=== PATIENT | female | born 2005 | race African-American/Black ===

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

== ENCOUNTER 2023-11-20 10:51 | Emergency (ER) | payer SELFPAY | END 2023-11-20 11:13 | disposition left against medical advice (07) | DX: Z53.21 Procedure and treatment not carried out due to patient leaving prior to being seen by health care provider (principal) | CPT/HCPCS: 99199 ==

== ENCOUNTER 2023-12-18 22:50 | Emergency (ER) | payer OTHER, SELFPAY ==
[2023-12-18 23:09] VITALS: BP 114/63; PULSE 77; RESP 16; TEMP 36.6; O2SAT 100
--- NOTE | 2023-12-18 23:13 | ED_ITS ---
[facility] - General Adult General Chief complaint: Unspecified Stated complaint: Had a baby four days ago; boobs are hard Time Seen by Provider: 12/18/23 23:11 Source: patient Mode of arrival: ambulatory Limitations: no limitations History of Present Illness HPI narrative: This is a 18-year-old female who presents to the ED for chief complaint breast firmness bilaterally. States ?my believes are hard and I just gave 4 days ago. ? Patient is concerned because she is trying to breastfeed and getting minimal output of milk. States that she talked to her lactational consulted to advise that she continue to pump and feed to help with this issue. She states that she decided to just come to the hospital. Related Data Allergies Allergy/AdvReac Type Severity Reaction Status Date / Time codeine Allergy Swelling Verified 11/20/23 10:52 of Lip/Tongue/Throat Review of Systems Review of Systems: All systems as dictated in [facility] Past Medical History Medical History No active medical problems Social History Social History Social History: Denies alcohol or tobacco. Occasional marijuana Smoking status: Never smoker Exam Narrative: GENERAL: Well-appearing, well-nourished, and in no acute distress. HEAD: Normocephalic, atraumatic. EYES: PERRLA and EOMI. ENT: Nares clear, no rhinorrhea or epistaxis. Mucous membranes moist. Oropharynx without tonsillar hypertrophy exudate or other lesions. NECK: Supple. No adenopathy or masses. CHEST: No respiratory distress. Clear to auscultation. No wheezes rales or rhonchi HEART: Regular rate and rhythm. No murmur heard. Normal peripheral pulses. ABDOMEN: Soft, nontender, nondistended, normal active bowel sounds. MSK: Normal range of motion. No edema. SKIN: Warm, dry, no rash. NEURO: Alert and oriented x4. No focal deficits. PSYCH: Normal mood and affect. Breast exam done with female RN cosmetic account coordinator present: No erythema, induration or purulent drainage. No tenderness. Course Vital Signs Vital signs: Vital Signs Temperature 98 F 12/18/23 23:09 Pulse Rate 77 12/18/23 23:09 Respiratory Rate 16 12/18/23 23:09 Blood Pressure 114/63 12/18/23 23:09 Pulse Oximetry 100 12/18/23 23:09 Oxygen Delivery Room Air 12/18/23 23:09 Temperature 98 F 12/18/23 23:09 Pulse Rate 77 12/18/23 23:09 Respiratory Rate 16 12/18/23 23:09 Blood Pressure 114/63 12/18/23 23:09 Pulse Oximetry 100 12/18/23 23:09 Oxygen Delivery Room Air 12/18/23 23:09 Medical Decision Making MDM Narrative Medical decision making narrative: This is a 18 yo female who presents to the ED for chief complaint of breast firmness bilaterally and difficulty with . Vitals are normal. Exam shows no evidence of any infection or mastitis. Patient will be discharged in stable condition. Supportive measures discussed and return precautions given. Patient is understanding and agreeable with plan for discharge with PCP follow-up. Vital Signs Vital Signs: Vital Signs Temperature 98 F 12/18/23 23:09 Pulse Rate 77 12/18/23 23:09 Respiratory Rate 16 12/18/23 23:09 Blood Pressure 114/63 12/18/23 23:09 Pulse Oximetry 100 12/18/23 23:09 Oxygen Delivery Room Air 12/18/23 23:09 Temperature 98 F 12/18/23 23:09 Pulse Rate 77 12/18/23 23:09 Respiratory Rate 16 12/18/23 23:09 Blood Pressure 114/63 12/18/23 23:09 Pulse Oximetry 100 12/18/23 23:09 Oxygen Delivery Room Air 12/18/23 23:09 Discharge Plan Discharge Clinical Impression: Hardness of breast Patient Disposition: Home, Self-Care Condition: Stable Instructions: Antibiotic Form, and Plugged Ducts (ED) Additional Instructions: Exam today is reassuring. No evidence of infection. Please follow-up closely with your OB on this issue. If you have any new or worsening symptoms please return to the ER for further evaluation. Prescriptions: No Action vit,nisha [id number] 28 mg iron- 1 mg tablet 1 tablet PO DAILY Qty: 30 0RF acetaminophen 500 mg tablet 1,000 mg PO TID PRN (Reason: carmen) 7 Days Qty: 42 0RF ibuprofen 800 mg tablet 800 mg PO TID PRN (Reason: pain) 7 Days Qty: 21 0RF ondansetron 4 mg tablet,disintegrating 4 mg PO Q8H PRN (Reason: nausea and vomiting) Qty: 10 0RF Follow-up/Referrals: UNKNOWN,DOCTOR [Primary Care Provider] - Time of Disposition: 23:31
== END 2023-12-18 23:35 | disposition home or self-care (01) ==
PROVIDERS: Emergency Provider Physician Assistant
DX: O99.893 Other specified diseases and conditions complicating puerperium (principal); N64.89 Other specified disorders of breast
CPT/HCPCS: 99281

== ENCOUNTER 2024-05-02 20:48 | Emergency (ER) | payer BC, SELFPAY ==
--- NOTE | ~2024-05-02 | CT_ITS ---
11Noncontrast CT scan of the cervical spine Technique: Multiple contiguous axial [address] images of the cervical spine were obtained and rec onstructed in 2D sagittal and coronal planes on the acquisition scanner. Dose reduction technique was used on this scan by utilizing automated exposure control, adjustment of the mA and/or kV according to patient size. The dose-length product (DLP) was 351.21 mGy-cm. Clinical History: Pain Findings: No fractures or dislocations. Unremarkable visualized bony structures. The intervertebral disc spaces are preserved. No prevertebral soft tissue swelling. Impression: No fracture or subluxation of the cervical spine. Reviewed, dictated and finalized at location . Impression: No fracture or subluxation of the cervical spine.
--- NOTE | ~2024-05-02 | CT_ITS ---
Noncontrast CT scan of the thoracolumbar spine CLINICAL HISTORY: Back pain, status post fall TECHNIQUE: Axial noncontrast imaging of the thoracolumbar spine was performed. Sagittal and coronal r eformatted images were constructed. Dose reduction technique was used on this scan by utilizing autom ated exposure control and iterative reconstruction technique. The dose-length product (DLP) was 869.0 4 mGy-cm. FINDINGS: There is no fracture or subluxation of thoracic spine. Vertebral bodies maintain normal hei ght and alignment. Intervertebral disc spaces are preserved. No significant disc bulge or herniation identified. No spinal canal stenosis, cord compression, or neural foraminal narrowing identified. There is no fracture or subluxation of the lumbar spine. Vertebral bodies maintain normal height and alignment. Intervertebral disc spaces are well preserved. No significant disc bulge or herniation see n in the lumbar spine. No spinal canal stenosis or neural foraminal narrowing. Paravertebral soft tissues are unremarkable. Impression: Unremarkable exam. Reviewed, dictated and finalized at location . Impression: Unremarkable exam.
--- OUTSIDE RECORDS SUMMARY | 2024-05-02 20:50 | XMS_ITS | Clinical Summary ---
Author Organization [address] Address [facility] [place] [address] Care Team Providers Care Systems Design Engineer Name Role Phone Tin Rodriguez NP Primary Care Provider Allergies Active Allergy Reactions Criticality Noted Date Comments Codeine Swelling,Stomach upset Medium 03/18/2016 Stomach/GI Upset Medications vit 03-bcby-lraqr-dha 27mg iron- 800 mcg-250 mg capsule Take 1 tablet/capsule by mouth daily 60 capsule 6 04/22/19 24 Active Additional Information Patient not taking.Reported on 03/29/2024 ondansetron ODT (ZOFRAN-ODT) 4 mg disintegrating tablet Take 1 tablet (4 mg total) by mouth every 8 (eight) hours as needed for nausea or vomiting 30 tablet 05/25/19 24 Active Additional Information Patient not taking.Reported on 03/29/2024 ferrous sulfate 325 mg (65 mg of elemental iron) tabletIndications: Iron Deficiency Anemia Take 1 tablet (325 mg total) by mouth daily with breakfast 30 tablet 11 07/31/19 24 025 Active Additional Information Patient not taking.Reported on 03/29/2024 budesonide-formote roL (SYMBICORT) 80-4.5 mcg/actuation inhaler Inhale 2 puffs 2 (two) times a day Rinse mouth with water after use. Do not swallow. 1 each 2 08/12/19 24 Active Additional Information Patient not taking.Reported on 03/29/2024 albuterol HFA (PROVENTIL HFA,VENTOLIN HFA,PROAIR HFA) 90 mcg/actuation inhaler Inhale 2 puffs every 6 (six) hours as needed for wheezing 1 each 2 08/12/19 24 025 Active Additional Information Patient not taking.Reported on 03/29/2024 salmeteroL (SEREVENT DISKUS) 50 mcg/dose diskus inhalerIndications :Adjunct Maintenance Therapy for Asthma Inhale 1 puff 2 (two) times a day 1 each 3 09/24/19 24 Active Additional Information Patient not taking.Reported on 03/29/2024 hydrOXYzine (ATARAX) 25 mg tabletIndications: Supervision of other normal , antepartum Take 1 tablet (25 mg total) by mouth nightly 30 tablet 2 09/24/19 24 Active montelukast (SINGULAIR) 10 mg tablet Take 1 tablet (10 mg total) by mouth nightly 30 tablet 11 09/28/19 24 025 Active Additional Information Patient not taking.Reported on 03/29/2024 acetaminophen 500 mg capsuleIndications :Pain Take 2 capsules (1,000 mg total) by mouth every 6 (six) hours 30 tablet 12/17/19 24 Active Additional Information Patient not taking.Reported on 03/29/2024 ibuprofen (ADVIL,MOTRIN) 600 mg tabletIndications: Pain Take 1 tablet (600 mg total) by mouth every 6 (six) hours 60 tablet 12/17/19 24 Active Additional Information Patient not taking.Reported on 03/29/2024 polyethylene glycol (MIRALAX) 17 gram/dose bulk powderIndications: constipation Take 17 g by mouth daily 510 g 12/17/19 24 Active gabapentin (NEURONTIN) 100 mg capsuleIndications :Neuropathic Pain Take 1 capsule (100 mg total) by mouth 3 (three) times a day for 14 days 42 capsule 03/28/19 25 Active Additional Information Patient not taking.Reported on 03/29/2024 norethindrone (MICRONOR) 0.35 mg tabletIndications: Contraception Take 1 tablet (0.35 mg total) by mouth daily 28 tablet 6 03/29/19 25 026 Active Hospital, Clinic, or Other Facility Administered Medication Ordered Dose Route Frequency Start Date End Date Status [facility] ferrous sulfate/placebo (/IVAD2 TRIAL) tablet 1 tabletIndications:Iron deficiency anemia during 1 tablet oral Daily 08/27/2023 Active Active Problems Problem Noted Date Diagnosed Date care following vaginal delivery 12/12 Overview (12/17/2023): # ID: Afebrile. No signs/symptoms of infection. #VZV NI: for Varivax # Heme: QBL 200 mL. Hemodynamically stable. #Rh neg: s/p Rhogam 09/23. Mom B-, baby B-. # CV/Pulm: Vital signs stable, within normal limits. #MP asthma: Current regimen: Symbicort 80-4.5 mcg inhaler 2 puffs BID, Albuterol 90 mcg inhaler 2 puffs every 4-6 hours PRN, Serevent bid, Singulair daily. #Transient CP: 3 minute episode of CP overnight within an hour of a meal. Explained to patient that this was likely GERD. Has not had any more episodes this morning. # GI/: Tolerating PO. Voiding spontaneously. # Pain: Controlled with above regimen. # MOC: s/p nexplanon placement. # MOF: . Urine drug screen not indicated. Patient informed of results: N/A. # Post DVT prophylaxis: The patient has the following MAJOR risk factors none and the following MINOR risk factors BMI 30-39. SCDs ordered for VTE prophylaxis. # Disposition: Follow up task sent to [facility] scheduling pool. Continue routine care. Moderate persistent asthma 08/12/2023 Overview (11/23/2023): - Age at Diagnosis: Never had diagnosis until this , feels SOB frequently - History of hospitalizations/intubations?: No - Classifications: mild intermittent, mild persistent, moderate persistent, severe persistent - Pre- classification: None - Current classification: moderate persistent - Pre- regimen: None - Baseline peak flow: 180/270/230 (08/12/23) - Ekg Monitor Tech/PCP: Pt has PCP from years ago, will need another PCP after delivery Current regimen: Symbicort 80-4.5 mcg inhaler 2 puffs BID, Albuterol 90 mcg inhaler 2 puffs every 4-6 hours PRN, Serevent bid, Singulair (added 09/27) Plan: [x] Provide prescriptions for spacer and home peak flow meter [x] Create asthma action plan with patient at initial visit [x] Review inhaler technique, regimen adherence and evaluation of confounders of asthma symptoms every visit [x] Obtain peak flows every visit if classification is higher than mild intermittent or symptomatic [x] If patient does not have PCP or electric pile driver operator to manage outside of consider referral: pulmonology referral sent given new diagnosis [x] 3rd trimester anesthesia consultation if moderate to severe asthma - ordered 11/22 Growths and testing per FGR problem Poor social situation 09/03/2022 Overview (05/20/2023): - Partner recently released from incarceration - Living with partner and children - Denies safety concerns - SW referral Alpha thalassemia silent carrier 04/27/2022 Overview (09/28/2023): - Patient alpha thalassemia silent carrier - S/p visit with genetic counselor 07/05. Patient will notify us if she desires partner testing. Rh negative 01/08/2021 Overview (09/28/2023): - IOB T&S: B negative, Davidson negative. Plan: [x] Rhogam at 28 weeks -given 09/23 [] Rhogam workup . Resolved Problems Problem Noted Date Diagnosed Date Resolved Date growth restriction, resolved 09/28/2023 03/21/2024 Iron deficiency anemia during 08/12/2023 03/21/2024 Overview (12/10/2023): Enrolled in IV iron study. Iron management per study protocol. 1000mg Iron Dextran IV Infusion given without complications on 12/09 Patient tolerated well Pt without complaints VSS Nausea and vomiting during 06/17/2023 03/21/2024 Overview (06/17/2023): 06/14: Pt reporting intermittent, daily nausea. Has not been able to flower picker meds due to insurance issues. Able to tolerate PO. Gained 9 pounds over past 2 months, 3 over past month. Plan: [] Reviewed use of B6/doxylamine, Zofran PRN > Rx resent to preferred pharmacy, discussed OTC purchase or Good Rx use if needed based on insurance coverage [] Reviewed eating and weight gain recommendations Short interval between pregn ancies affecting , antepartum 06/17/2023 03/21/2024 Overview (06/17/2023): S/p 09/2022 Counseled patient that short interpregnancy intervals (<12 months) are associated with increased obstetric risks. These include ixvpa-vho-oqjygyvmago-age (SGA) , and infant mortality. Plan: [] ASA for AA and SIP, Rx sent Encounter for supervision of normal , antepartum 05/20/2023 03/21/2024 Overview (11/26/2023): 1st Trimester: [x] Dating Criteria: L=1 (US 05/18/23, [place] 10w5d, CELSA 12/09/23) [x] Labs: Rh neg, Ab neg, Hgb 11.2, Plt 244, Rubella imm, VZV equiv, HIV NR, RPR NR, HepBSAg NR, Hep C Ab NR [x] GC/CT/Trich: neg x3 [x] UCx: CLIG [x] vitamins [x] Genetic Screening: low risk, male [x] Carrier screening: known alpha thal carrier, see separate problem [x] Hgb electrophoresis: AA (2020) [x] Pap: not indicated 2/2 age [] EPDS: PNBHS referral (if indicated) [x] ASA at 12 weeks (if indicated): AA, short interval [x] DM screening: HgbA1c 5.3 [x] Feeding Preferences: benefits of discussed with patient at RN IOB 2nd Trimester: [x] Anatomy ultrasound: incomplete 07/14, complete 07/28 [x] 1hr GTT (24-28wks): 79 [] Flu Shot (Oct-Jan): N/A [x] Tdap (27-36wks): given 8/2 [x] Rhogam (if Rh neg): given /2 [] Childbirth classes discussed [] education (colostrum, expected breast changes, plan for RTW) and breast pump ordered [] Second trimester education packet 3rd Trimester: [x] CBC/HIV/RPR/T&S: NR 11/22 [x] GBS: neg 11/22 [] GC/CT/Trich (if indicated): [] RSV vaccine [] Final discussion (S2S, Baby Friendly, LC Support, PP experience) [] Third trimester education packet Last visit: [] Last clinic visit SVE: [] IOL start agent: [] Epidural: [] Consents signed: Counseling: [] Method of delivery: [] Bottle of CHG 4% and hand out provided @ 36wks (if planned) [] Timing of delivery: desires spontaneous labor, declined 39w IOL [x] MOC: discussed 11/22, to readdress [x] MOF: breast [] COVID-19 vaccine counseling [] education: completed in all 3 trimesters [] Compressor Station Engineer Chief: discussed 11/22 [] Car seat discussed [] PP depression counseling care following vaginal delivery 10/10/2022 05/20/2023 Overview (10/12/2022): # ID: Afebrile. No signs/symptoms of infection. #Varicella non-immune: Varivax given 10/12 # Heme: EBL 150 mL. No symptoms acute blood loss anemia. #Rh neg: baby B neg, no indication for rhogam # CV/Pulm: Vital signs stable, within normal limits. # GI/: Tolerating PO. Voiding spontaneously. # Pain: Pain controlled with medication regimen. # MOC: Progestin-only pills. # MOF: . Urine drug screen not indicated. Patient informed of results: N/A. # Post DVT prophylaxis: The patient has the following MAJOR risk factors none and the following MINOR risk factors BMI 30-39. SCDs ordered for VTE prophylaxis. # Disposition: Follow up task sent to [facility] scheduling pool. Desires discharge home today. Encounter for induction of labor 10/09/2022 05/20/2023 Overview (10/09/2022): Serena Nair is a 17 y.o. female at 39w3d who is dated by L=1 and is being admitted for an elective induction of labor. Admit to L&D: Consents signed and placed in chart. Labs: CBC and T&S pending. Induction of labor with CC and OT . FWB: Continuous monitoring. tracing category I. ID: 3rd trimester HIV (>28 wga) negative on 09/03/22. GBS negative on 09/18/22 . RPR on admission: pending. Membrane Status: intact. Indications for UDS: none. Verbal consent obtained for UDS: Not indicated. MOF: Plans to breastfeed. Urine drug screen not indicated. Patient informed of results: N/A. MOC: Plans to use POPs > COCs for contraception. Pain management: Desires epidural. Post DVT prophylaxis: The patient has the following MAJOR risk factors none and the following MINOR risk factors BMI 30-39. SCDs will be ordered for VTE prophylaxis . Rh negative: for PP Rhogram workup Varicella non-immune: for Varivax History of anemia 04/06/2022 05/20/2023 Overview (09/25/2022): Hgb 13 on IOB labs 3T Hgb 11.8 Varicella non-immune 03/10/2022 025 Overview (09/28/2023): - Varivax given G2 (10/12/22) - IOB labs with VZV equivocal. Plan: [] Repeat Varivax Encounter for supervision of normal in third trimester 02/25/2022 05/20/2023 Overview (10/09/2022): UMESH WILKS DEL 1st Trimester: [x] Dating Criteria: L=1 [x] Labs: Rh neg, Ab neg, CBC wnl, Rubella imm, VZV NI, HIV NR, RPR NR, HepBSAg neg, Hep C Ab neg [x] GC/CT/Trich: negx3 [x] UCx: neg [x] vitamins talking [x] Genetic Screening: LR [x] CF/SMA carrier screening: alpha thal silent carrier [x] Hgb electrophoresis: AA [x] Pap: NA [x] EPDS: PNBHS referral (if indicated): N/A [x] ASA at 12 weeks (if indicated) N/A [x] DM screening: HgbA1c 4.8 (<5.7: no further test until 2T screen, 5.7-6.5: obtain 2h GTT, >6.5: refer to CDP) [] Feeding Preferences: benefits of discussed with patient at RN IOB 2nd Trimester: [x] Anatomy ultrasound: eIF, wnl, AGA, completion 06/18 wnl [x] CBC: Hgb 12.1 [x] 1hr GTT (24-28wks): 96 [x] Flu Shot (Oct-Jan): N/A [x] Tdap (27-36wks): 07/24/22 [x] Rhogam (if Rh neg): 07/24/22 [x] Childbirth classes discussed [x] education (colostrum, expected breast changes, plan for RTW) and breast pump ordered [x] Second trimester education packet 3rd Trimester: [x] CBC/HIV/RPR/T&S: Hgb 11, HIV/RPR NR (09/03/22) [x] GBS: negative [x] GC/CT/Trich (if indicated): neg/neg/neg [x] Final discussion (S2S, Baby Friendly, LC Support, PP experience) [x] Third trimester education packet Last visit: [x] Last clinic visit SVE: /-3 [x] IOL start agent: Cook catheter with pitocin [x] Epidural: desires when painfully jess [x] Consents signed: yes, 10/09/22 Counseling: [x] Method of delivery: anticipate vaginal [] Bottle of CHG 4% and hand out provided @ 36wks (if planned) [x] Timing of delivery: discussed r/b/a to risk reducing 39 week IOL, pt declined, planning to await labor [x] MOC: POPs > OCPs, considering Nexplanon at later date [x] MOF: [] COVID-19 vaccine counseling [x] education: completed in all 3 trimesters [x] Compressor Station Engineer Chief: remains undecided, going to look today before IOL [x] Car seat discussed [x] PP depression counseling Encounters Date Type Department Care Team Description 03/29/2024 11:30 AM INTERNET MARKETING MANAGER Procedure visit [facility] Obstetrics and Gynecology [facility] 7th Floor [address] [place] [address] 7, Ob Cms Provider 2 Coh Nexplanon removal (Primary Dx); Encounter for initial prescription of contraceptive pills 03/29/2024 [facility] Eligibility Review [facility] Community Health Worker [address] [place] [address] [address] [place] [address] Rosie Benton 03/28/2024 3:39 AM INTERNET MARKETING MANAGER - 03/28/2024 6:26 AM INTERNET MARKETING MANAGER Emergency [facility] Emergency Department [address] [place] [address] Janel Bales MD Encounter for surveillance of Nexplanon subdermal contraceptive (Primary Dx); Impingement of left shoulder Discharge Disposition: Discharge to home or self care 03/28/2024 Tele[facility] [address] [place] [address] Floor [address] [place] [phone] Ruthie Alvarado 03/27/2024 Telephone [facility] [address] [place] [address] Floor [address] [place] [address] Sirisha Crews RN 03/07/2024 Telephone [facility] [address] [place] [address] Floor [address] [place] [phone] Blaise Vences from Last 3 Months Immunizations Immunization Administration Dates Next Due DTaP 06/04/2010, 9,12/03/2006,08/17,02/19/2006,10/23/2005,03/27/2004 ,02/04/2004,2003 DTaP / Hep B / IPV 11/16/2007 H1N1 All Forms 04/02/2009,01/24/2009 HPV9 10/17/2015,06/20/2015,11/26/2014 Hep A, Ped Unspecified 10/23/2005 Hep A, Unspecified 05/14/2008,03/16/2007, 007 Hep B, Adolescent or Pediatric 03/27/2004,2003,2003 Hep B, Unspecified 11/16/2007, 7,02/19/2006,01/01 HiB 05/14/2008, 7,08/17/2006,02/19,10/23/2005,03/27/2004,02/04/2004 ,2003 IPV 03/27/2004,02/04/2004,2003 Influenza, Quadrivalent, Spl it, Preservative Free, Intramuscular 11/30/2018,11/26/2014 Influenza, Unspecified 12/13/2013,2010,03/16/2007,12/03 MMR 08/07/2021(Deferred: No longer needed - Pt Rubella Immune, vaccine not required),11/16/2007,03/16/2007,2006 MMRV 10/23/2005 Meningococcal MCV4P (Menactra) 11/26/2014 Pneumococcal Conjugate 7-Valent 03/27/2004,02/03 Pneumococcal, Unspecified 05/14/2008,01/2007,08/17/2006,02/19,2003 Polio, Unspecified 06/04/2010, 8,08/17/2006,02/19 Rotavirus, Unspecified 02/19/2006 Tdap 09/24/2023, 3,06/16/2021,12/03 Varicella 12/16/2023, 3,08/07/2021,06/04,10/05/2008,03/16/2007 Medical History Medical History Date Comments Asthma Migraine Alpha thalassemia silent carrier 2022 Family History Medical History Relation Name Comments No Known Problems Father Breast cancer Maternal Grandmother Cerebral palsy Mother Pancreatic cancer Paternal Grandfather Breast cancer Paternal Grandmother Relation Name Status Comments Father Alive Maternal Grandmother Mother Alive Paternal Grandfather Paternal Grandmother Alive Social History Tobacco Use Types Packs/Day Years Used Date Smoking Tobacco: Never Smokeless Tobacco: Never Tobacco Cessation:Counseling Given: Not Answered Alcohol Use Standard Drinks/Week Comments Never 0 (1 standard drink = 0.6 oz pur e alcohol) [facility] Utilities Answer Date Recorded In the past 12 months has [employer], oil, or water company threatened to shut off services in your home? No 12/16/2023 Humiliation, Afraid, Rape, and Kick questionnair e Answer Date Recorded Within the last year, have y ou been afraid of your partner or ex-partner? No 04/19/2023 Within the last year, have y ou been humiliated or emotionally abused in other ways by your partner or ex-partner? No Within the last year, have y ou been kicked, hit, slapped, or otherwise physically hurt by your partner or ex-partner? No 04/19/2023 Within the last year, have y ou been raped or forced to have any kind of sexual activity by your partner or ex-partner? No 04/19/2023 Social Connection and Isolat ion Panel [NHANES] Answer Date Recorded In a typical week, how many times do you talk on the phone with family, friends, or neighbors? More than three times a week 12/16/2023 How often do you get togethe r with friends or relatives? More than three times a week 12/16/2023 How often do you attend chur or yarsani services? More than 4 times per year 12/16/2023 Do you belong to any clubs o r organizations such as baptist groups, unions, fraternal or athletic groups, or school groups? Yes 12/16/2023 How often do you attend meet ings of the clubs or organizations you belong to? More than 4 times per year 12/16/2023 Are you , , di vorced, , never , or living with a partner? Never 12/16/2023 AUDIT-C Answer Date Recorded Q1: How often do you have a drink containing alc ohol? Never 03/29/2024 Average Number of Drinks Not on file 025 Frequency of Binge Drinking Not on file 06/2024 Overall Financial Resource Strain (CARDIA) Answe r Date Recorded How hard is it for you to pa y for the very basics like food, housing, medical care, and heating? Not very hard 12/16/2023 PHQ-2 Answer Date Recorded PHQ-2 Total Score (If total score is 3 or more points, staff should administer the PHQ-9) 0 10/09/2022 [facility] Health - Occupational Stress Questionnaire Answer Date Recorded Do you feel stress - tense, restless, nervous, or anxious, or unable to sleep at night because your mind is troubled all the time - these days? Only a little 10/05/2023 Exercise Vital Sign Answer Date Recorde d On average, how many days pe r week do you engage in moderate to strenuous exercise (like a brisk walk)? 3 days 04/19/2023 On average, how many minutes do you engage in exercise at this level? 30 min 04/19/2023 Hunger Vital Sign Answer Date Recorded Within the past 12 months, y ou worried that your food would run out before you got the money to buy more. Never true 12/16/19 Within the past 12 months, t he food you bought just didn't last and you didn't have money to get more. Never true 12/16/2023 PRAPARE - Transportation Answer Date Re corded In the past 12 months, has l ack of transportation kept you from medical appointments or from getting medications? No 11/23 In the past 12 months, has l ack of transportation kept you from meetings, work, or from getting things needed for daily living? No 12/16/2023 Housing Stability Vital Sign Answer Yvon e Recorded In the last 12 months, was t here a time when you were not able to pay the mortgage or rent on time? Yes 04/19/2023 In the last 12 months, how many places have you lived? 2 04/19/2023 In the last 12 months, was t here a time when you did not have a steady place to sleep or slept in a jail (including now)? No 04/19/2023 Lockridge Depression Scale Answer Date Recorded Lockridge Depression Scale Total 6 08/27/2023 The thought of harming myself has occurred to me . Never 08/27/2023 Housing Stability Vital Sign Answer Yvon e Recorded In the last 12 months, was t here a time when you were not able to pay the mortgage or rent on time? No 12/16/2023 In the past 12 months, how m any times have you moved where you were living? 1 12/16/2023 At any time in the past 12 m [facility], were you homeless or living in a jail (including now)? No 12/16/2023 Personal Safety Answer Date Recorded Have you ever been in or are you currently in a harmful physical or emotional relationship or is someone making you feel afraid or unsafe? Denies 03/28/2024 Education Answer Date Recorded What is the highest level of school you have completed or the highest degree you have received? 11th grade 02/24/2022 Comments No Sex and Gender Information Value Date Recorded Sex Assigned at Female 03/29/2024 11:30 AM INTERNET MARKETING MANAGER Legal Sex Female 6:07 AM INTERNET MARKETING MANAGER Gender Identity Female 03/29/2024 11:30 AM INTERNET MARKETING MANAGER Sexual Orientation Straight 03/29/2024 11 :30 AM INTERNET MARKETING MANAGER Obstetrics History Para Term AB IAB SAB Ectopic Multiple Livin g Live Births 4 3 3 0 1 0 1 0 0 3 3 Date Outcome GA Total Labor Labor/2nd/3rd Weight Sex Type Anes PTL Ragini A1 A5 Name Clin SAB SAB 2021 Term 37w 5d 11h 54m 9h 56m/1h 56m/0h 02m 2.87 kg (6 lb 5.2 oz) M Vag-Sp ont Epidur al N Livin g 7 9 KELLI NAIR, Mauro Ahuja MD Complications:None Delivery Location:[facility] Main C ampus ([facility]LD) 2022 Term 39w 4d 6h 30m 6h 03m/0h 25m/0h 02m 2.76 kg (6 lb 1.4 oz) F Vagina l Epidur al N Livin g 8 9 ADRIANA NAIR Julia Ellen, MD Complications:None Delivery Location:[facility] Main C ampus ([facility]) 2023 Term 40w 6d 0h 15m 0h 11m/0h 04m 3.15 kg (6 lb 15.1 oz) M Vagina l None N Livin g 8 9 Murray whittaker, Chadwick dia MD Complications:None Delivery Location:[facility] Main C ampus ([facility]) Last Filed Vital Signs Vital Sign Reading Time Taken Comments Blood Pressure 112/71 03/29/2024 11:24 AM INTERNET MARKETING MANAGER Pulse 84 03/28/2024 6:20 AM INTERNET MARKETING MANAGER Temperature 37 C (98.6 F) 03/28/2024 1:43 AM INTERNET MARKETING MANAGER Respiratory Rate 16 03/28/2024 6:20 AM INTERNET MARKETING MANAGER Oxygen Saturation 100% 03/28/2024 6:20 AM INTERNET MARKETING MANAGER Inhaled Oxygen Concentration - - Weight 73.9 kg (163 lb) 03/29/2024 11:24 AM INTERNET MARKETING MANAGER Height 162.6 cm (5' 4 ) 03/29/2024 11:24 AM INTERNET MARKETING MANAGER Body Mass Index 27.98 03/29/2024 11:24 AM INTERNET MARKETING MANAGER Plan of Treatment Health Maintenance Due Date Last Done Comments Pneumococcal vaccine <65 (1 of 2 - PPSV23) 07/09/2008 05/14/2008, 12/03/2006, 08/17/2006, Additional history exists Meningococcal B Vaccine (1 of 2 - Standard) 2019 Regular Well Visit/Exam 18-64 09/20/2021 Influenza Vaccine (#1) 2023 9, 11/26/2014, 12/13/2013, Additional history exists Chlamydia and Gonorrhea (GC/CT) Screening 07/30/2024 07/31/2023, 04/19/2023, 09/03/2022, Additional history exists Depression Screening 08/26/2024 08/27/2023, 09/26/2022, 09/26/2022 DTaP/Tdap/Td Vaccine (10 - Td or Tdap) 09/23/2033 09/24/2023, 07/24/2022, 06/16/2021, Additional history exists Hepatitis B Screening Completed 11/16/2007 , 11/16/2007, 08/17/2006, Additional history exists Meningococcal Vaccine Aged Out 11/26/2014 No rober mansoor eligible based on patient's age to complete this topic HPV Vaccines Completed 10/17/2015, /09/2015, 11/26/2014 Hepatitis C Screening Completed 04/19/2023 , 03/09/2022, 01/08/2021 Varicella Vaccines Completed 12/16/2023, 0 10/12/2022, 08/07/2021, Additional history exists Procedures Procedure Name Priority Date/Time Associated Diagnosis Comments POCT HCG, URINE Routine 03/28/2024 6:14 AM INTERNET MARKETING MANAGER N. GONORRHOEAE/C. TRACHOMATIS AMPLIFICATION Routine 07/31/2023 10:58 AM CDT HEPATITIS C ANTIBODY Routine 04/19/2023 11:59 AM INTERNET MARKETING MANAGER Encounter for supervision of other normal in first trimester from Last 3 Months or Most Recently Relevant to Health Maintenance Results * POCT hCG, urine (03/28/2024 6:14 AM INTERNET MARKETING MANAGER) Pathologist [facility] HCG, ur, POC Negative Negative Lot Number [id number] QC Backgroud Clear Acceptable QC Control Line Acceptable Urine 03/28/2024 6:14 AM INTERNET MARKETING MANAGER Jinny Devine MD POINT OF CARE TEST ORD ERABLES Final Result * N. gonorrhoeae/C. trachomatis Amplification Urine (07/31/2023 10:58 AM CDT) Pathologist [facility] C. trachomatis Not Detected Not Detected [facility] N. gonorrhoeae Not Detected Not Detected [facility] Comment: Interpretive Data This assay detects Chlamydia trachomatis and Neisseria gonorrhoeae by nucleic acid amplification testing (NAAT). This assay has been cleared by the [place] Food and Drug administration. The performance characteristics of this test have been verified by the [facility] Molecular Infectious Disease laboratory. The performance characteristics of this test have not been evaluated in individuals less than 14 years of age. Current Interpretive Data last revised 2022. Urine (None) 07/31/2023 10:5 8 AM CDT 07/31/2023 11:18 AM CDT Yolanda Mims MD LAB MICROBIOLOGY - G ENERAL ORDERABLES Final Result [facility] Department [place] [address] [facility] * Hepatitis C antibody Blood (04/19/2023 11:59 AM INTERNET MARKETING MANAGER) Pathologist [facility] Hep C Ab Nonreactive Nonreactive [facility] Comment:Antibodies to HCV no t detected. Does NOT exclude the possibility of recent exposure to HCV. Current interpretive data was last revised on 21 Blood 04/19/2023 11:5 9 AM INTERNET MARKETING MANAGER 04/19/2023 12:31 PM INTERNET MARKETING MANAGER Niko John MD LAB MICROBIOLOGY - GENERAL ORDERABLES Final Result Performing Organization Address City/State/[facility] Co de Phone Number REG [facility] Department [place] [address] from Last 3 Months or Most Recently Relevant to Health Maintenance Insurance [facility] OTHER Address: [address] [facility] PPO [facility] PLAN [facility] ACCESS Advance Directives For more information, please contact: [phone] * Full Code (Latest Code Status on File) Date Activated Date Inactivated Comments 12/15/2023 3:18 PM 12/17/2023 9:44 PM * Full Code Date Activated Date Inactivated Comments 12/14/2023 12:36 AM 12/15/2023 3:18 PM Full CPR in case of cardiopulmonary arrest * Full Code Date Activated Date Inactivated Comments 10/10/2022 7:20 AM 10/12/2022 6:04 PM * Full Code Date Activated Date Inactivated Comments 10/09/2022 8:24 PM 10/10/2022 7:20 AM Full CPR in case of cardiopulmonary arrest * Full Code Date Activated Date Inactivated Comments 08/05/2021 3:12 PM 08/07/2021 6:55 PM Care Teams Systems Design Engineer Relationship Specialty Start Date End Date Tin Rodriguez NP [address] [place] [address] PCP - General Family Medicine 03/29/24
--- OUTSIDE RECORDS SUMMARY | 2024-05-02 20:50 | XMS_ITS | Encounter Summary ---
Author Organization [facility] Healthcare Address [address] [place] [address] Care Team Providers Care Broach Setter Name Role Phone Tin Rodriguez NP Primary Care Provider [phone] Encounter Details Date Type Department Care Team (Late st Contact Info) Description 10/07/2023 Social Work Obstetrics and Gynecology Clinic [address] [facility] 3rd Floor [address] [place] [address] Senthil Lomas LCSW Social History Tobacco Use Types Packs/Day Years Used Date Smoking Tobacco: Never Smokeless Tobacco: Never Alcohol Use Standard Drinks/Week Comments Never 0 (1 standard drink = 0.6 oz pur e alcohol) [facility] Utilities Answer Date Recorded In the past 12 months has e [employer], gas, oil, or water [employer] threatened to shut off services in your home? No 04/19/2023 Humiliation, Afraid, Rape, and Kick questionnair e [...] neighbors? More than three times a week 04/19/2023 How often do you get togethe r with friends or relatives? More than three times a week 04/19/2023 Attends Christian Services Not on file 04/19 Active Member of Clubs or Organizations Not on f ile 04/19/2023 Attends Club or Organization Meetings Not on manny e 04/19/2023 Marital Status Not on file 04/19/2023 AUDIT-C Answer Date Recorded Q1: How often do you have a drink containing alcohol? Never 08/12/2023 Q2: How many drinks containi ng alcohol do you have on a typical day when you are drinking? Patient does not drink Frequency of Binge Drinking Not on file 07/24 Overall Financial Resource Strain (CARDIA) Answe r Date Recorded How hard is it for you to pa y for the very basics like food, housing, medical care, and heating? Not very hard 10/05/2023 PHQ-2 Answer Date Recorded PHQ-2 Total Score (If total score is 3 or more points, staff should administer the PHQ-9) 0 10/09/2022 [facility] - Occupational Stress Questionnaire Answer Date Recorded [...] the money to buy more. Never true 10/05/19 24 Within the past 12 months, t he food you bought just didn't last and you didn't have money to get more. Never true 10/05/2023 PRAPARE - Transportation Answer Date Re corded In the past 12 months, has l ack of transportation kept you from medical appointments or from getting medications? No 09/22 In the past 12 months, has l ack of transportation kept you from meetings, work, or from getting things needed for daily living? No 10/05/2023 Housing Stability Vital Sign Answer Yvon e [...] place to sleep or slept in a mcfp (including now)? No 04/19/2023 [place] Depression Scale Answer Date Recorded [place] Depression Scale Total 6 08/27/2023 The thought of harming myself has occurred to me . Never 08/27/2023 Personal Safety Answer Date Recorded Have you ever been in or are you currently in a harmful physical or emotional relationship or is someone making you feel afraid or unsafe? Denies 07/31/2023 Education Answer Date Recorded What is the highest level of school you have completed or the highest degree you have received? 11th grade 02/24/2022 Comments Yes Sex and Gender Information Value Date Recorded Sex Assigned at Female 03/29/2024 11:30 AM SAFETY COMPLIANCE SPECIALIST Legal Sex Female 6:07 AM SAFETY COMPLIANCE SPECIALIST Gender Identity Female 03/29/2024 11:30 AM SAFETY COMPLIANCE SPECIALIST Sexual Orientation Straight 03/29/2024 11 :30 AM SAFETY COMPLIANCE SPECIALIST documented as of this encounter Plan of Treatment Not on file documented as of this encounter Visit Diagnoses Not on filedocumented in this encounter Additional Health Concerns Infection Onset Date Last Indicated Resolved Time COVID: Suspected 11/20/2023 11/20/2023 11/20/2023 3:42 PM CDT Rhino/Enterovirus 11/20/2023 11/20/2023 11/27/2023 3:05 AM CDT documented as of this encounter Care Teams Broach Setter Relationship Specialty Start Date End Date Tin Rodriguez NP [address] [place] [address] PCP - General Family Medicine 03/29/24 documented as of this encounter
--- OUTSIDE RECORDS SUMMARY | 2024-05-02 20:51 | XMS_ITS | Encounter Summary ---
Author Organization [facility] Healthcare Address [address] [place] [address] Care Team Providers Care Honey Producer Name Role Phone Tin Rodriguez NP Primary Care Provider [phone] Encounter Details Date Type Department Care Team (Late st Contact Info) Description 09/04/2022 Treatment [facility] [address] [address] Armando Cunningham MD Social History Tobacco Use Types Packs/Day Years Used Date Smoking Tobacco: Never Smokeless Tobacco: Never Alcohol Use Standard Drinks/Week Comments Never 0 (1 standard drink = 0.6 oz pur e alcohol) Humiliation, Afraid, Rape, and Kick questionnair e Answer Date Recorded Within the last year, have y ou been afraid of your partner or ex-partner? No 02/24/2022 Within the last year, have y ou been humiliated or emotionally abused in other ways by your partner or ex-partner? No Within the last year, have y ou been kicked, hit, slapped, or otherwise physically hurt by your partner or ex-partner? No 02/24/2022 Within the last year, have y ou been raped or forced to have any kind of sexual activity by your partner or ex-partner? No 02/24/2022 Social Connection and Isolat ion Panel [NHANES] Answer Date Recorded In a typical week, how many times do you talk on the phone with family, friends, or neighbors? Once a week 02/24/2022 Frequency of Social Gatherin gs with Friends and Family Not on file 02/24/2022 How often do you attend chur ch or temple services? More than 4 times per year 02/24/2022 Do you belong to any clubs o r organizations such as anabaptist groups, unions, fraternal or athletic groups, or school groups? No 02/24/2022 How often do you attend meet ings of the clubs or organizations you belong to? Never 02/24/2022 Are you , , di vorced, , never , or living with a partner? 02/24/2022 AUDIT-C Answer Date Recorded Frequency of Alcohol Consumption Not on file 07/12/2022 Q2: How many drinks containi ng alcohol do you have on a typical day when you are drinking? Patient does not drink Frequency of Binge Drinking Not on file 06/23 Overall Financial Resource Strain (CARDIA) Answe r Date Recorded How hard is it for you to pa y for the very basics like food, housing, medical care, and heating? Not hard at all 02/24/2022 [facility] - Occupational Stress Questionnaire Answer Date Recorded Do you feel stress - tense, restless, nervous, or anxious, or unable to sleep at night because your mind is troubled all the time - these days? Only a little 02/24/2022 Exercise Vital Sign Answer Date Recorde d On average, how many days pe r week do you engage in moderate to strenuous exercise (like a brisk walk)? 7 days 02/24/2022 On average, how many minutes do you engage in exercise at this level? 20 min 02/24/2022 Hunger Vital Sign Answer Date Recorded Within the past 12 months, y ou worried that your food would run out before you got the money to buy more. Never true 07/08/19 23 Within the past 12 months, t he food you bought just didn't last and you didn't have money to get more. Never true 07/07/2022 PRAPARE - Transportation Answer Date Re corded In the past 12 months, has l ack of transportation kept you from medical appointments or from getting medications? Yes 04/2022 In the past 12 months, has l ack of transportation kept you from meetings, work, or from getting things needed for daily living? Yes 02/24/2022 Housing Stability Vital Sign Answer Yvon e Recorded In the last 12 months, was t here a time when you were not able to pay the mortgage or rent on time? Yes 02/24/2022 In the last 12 months, how many places have you lived? 2 02/24/2022 In the last 12 months, was t here a time when you did not have a steady place to sleep or slept in a half-way (including now)? No 02/24/2022 [place] Depression Scale Answer Date Recorded [place] Depression Scale Total 6 07/07/2022 The thought of harming myself has occurred to me . Never 07/07/2022 Education Answer Date Recorded What is the highest level of school you have completed or the highest degree you have received? 11th grade 02/24/2022 Comments Yes Sex and Gender Information Value Date Recorded Sex Assigned at Female 03/29/2024 11:30 AM PSYCHOLOGY TECH Legal Sex Female 6:07 AM PSYCHOLOGY TECH Gender Identity Female 03/29/2024 11:30 AM PSYCHOLOGY TECH Sexual Orientation Straight 03/29/2024 11 :30 AM PSYCHOLOGY TECH documented as of this encounter Progress Notes * Armando Cunningham MD - 09/04/2022 4:10 PM CDT Transfusion Medicine Blood Bank Note Patient Information: ABO/Rh: B negative Antibody screen: Positive Previous antibodies: No known antibodies Antibodies identified: passive anti-D Additional testing performed: None Relevant Patient History: Serena Sood is a 16 y.o. woman at 32w0d who presents for her return OB visit. Testing Information: The antibody screen was positive. Antibody identification demonstrated antibodies against the D antigen in the patient's plasma. Additional testing was not performed. Phenotyping showed that the patient's red blood cells are D antigen negative. Detection of anti-D in this patient's plasma is consistent with the patient's known history of RhIgadministration on 07/24/2022 and is therefore categorized as a passive anti-D. All common, clinically significant antibodies have been ruled out. Clinical Relevance: RhIg is a biologic prepared from human plasma that consists of concentrated antibodies directed against the D antigen on red blood cells. Anti-D antibodies may be implicated in hemolytic transfusion reactions with extravascular hemolysis and hemolytic disease of the fetus and . Therefore, anti-D antibodies attributable to RhIg administration may generally be considered clinically significant as long as the passively acquired anti-D is present in the patient's plasma. Therapeutic Relevance: ABO/Rh and crossmatch compatible red blood cell units will be provided for future transfusions. Contact Information: Please contact the [facility] with any questions. This report has been prepared by: Armando Cunningham MD Cosigned by Franky Ruth MD at 09/08/2022 4:20 PM CDT Associated attestation - Franky Ruth MD - 09/08/2022 4:20 PM CDT Attestation: I have personally reviewed the antibody result and agree with the interpretation contained in this written blood bank report. Franky Ruth MD documented in this encounter Plan of Treatment Not on file documented as of this encounter Visit Diagnoses Not on filedocumented in this encounter Additional Health Concerns Infection Onset Date Last Indicated Resolved Time COVID: Suspected 07/31/2023 07/31/2023 07/31/2023 2:02 PM CDT COVID: Suspected 11/20/2023 11/20/2023 11/20/2023 3:42 PM CDT Rhino/Enterovirus 11/20/2023 11/20/2023 11/27/2023 3:05 AM CDT documented as of this encounter Care Teams Honey Producer Relationship Specialty Start Date End Date Tin Rodriguez NP [address] [place] [address] PCP - General Family Medicine 03/29/24 documented as of this encounter
--- OUTSIDE RECORDS SUMMARY | 2024-05-02 20:51 | XMS_ITS | Referral Summary ---
Author Organization [place] [id number] Address [address] [place] [address] Care Team Providers Care Automatic Corn Grinder Operator Name Role Phone Tin Rodriguez NP Primary Care Provider Encounters Date Type Department Care Team Description 03/29/2024 11:30 AM DIRECT CARE WORKER Procedure visit [facility] Obstetrics and Gynecology [address] [place] [address] 7th Floor [address] [place] [address] 7, Ob Cms Provider 2 Coh Nexplanon removal (Primary Dx); Encounter for initial prescription of contraceptive pills 03/29/2024 [facility] Eligibility Review [facility] Community Health Worker [address] [place] [address] [address] [place] [address] Rosie Benton 03/28/2024 Telephone Obstetrics and Gynecology Clinic [address] [place] [address] 3rd Floor [address] [place] [address] Ruthie Alvarado 03/28/2024 3:39 AM DIRECT CARE WORKER - 03/28/2024 6:26 AM DIRECT CARE WORKER Emergency [facility] Emergency Department [address] [place] [id number] Janel Bales MD Encounter for surveillance of Nexplanon subdermal contraceptive (Primary Dx); Impingement of left shoulder Discharge Disposition: Discharge to home or self care 03/27/2024 Telephone Obstetrics and Gynecology Clinic [address] [place] [address] 3rd Floor [address] [place] [address] Sirisha Crews RN 03/07/2024 Telephone Obstetrics and Gynecology Clinic [address] [facility] 3rd Floor [address] [place] [address] Blaise Vences from Last 3 Months Allergies Active Allergy Reactions Criticality Noted Date Comments Codeine Swelling,Stomach upset Medium 03/18/2016 Stomach/GI Upset Medications vit 39-gbwd-kqyye-dha 27mg iron- 800 mcg-250 mg capsule Take [...] Route Frequency Start Date End Date Status [facility] ferrous sulfate/placebo (2021-06-/IVAD2 TRIAL) tablet 1 tabletIndications:Iron deficiency anemia during 1 tablet oral Daily 08/27/2023 Active Active Problems Problem Noted Date Diagnosed Date care following vaginal delivery 12/12 Overview (12/17/2023): # ID: Afebrile. No signs/symptoms of infection. #VZV NI: for Varivax # Heme: QBL 200 mL. Hemodynamically stable. #Rh neg: s/p Rhogam 8/2. Mom B-, baby B-. # CV/Pulm: Vital [...] # Disposition: Follow up task sent to [facility] scheduling pool. Continue routine care. Moderate persistent asthma 08/12/2023 Overview (11/23/2023): - Age at Diagnosis: Never had diagnosis until this , feels SOB frequently - History of hospitalizations/intubations?: No - Classifications: mild intermittent, mild persistent, moderate persistent, severe persistent - Pre- classification: None - Current classification: moderate persistent - Pre- regimen: None - Baseline peak flow: 180/270/230 (08/12/23) - Market Reporter/PCP: Pt has PCP from years ago, will [...] If patient does not have PCP or magnetic locater to manage outside of consider referral: pulmonology [...] daily nausea. Has not been able to meat pickler meds due to insurance issues. Able to [...] associated with increased obstetric risks. These include szpea-krj-bbglwdojyit-age (SGA) , and mortality. Plan: [] ASA for AA and [...] Shot (Oct-Jan): N/A [x] Tdap (27-36wks): given 09/23 [x] Rhogam (if Rh neg): given /2 [...] education: completed in all 3 trimesters [] Aquatic Habitat Biologist: discussed 11/22 [] Car seat discussed [] [...] # Disposition: Follow up task sent to [facility] scheduling pool. Desires discharge home today. Encounter [...] third trimester 02/25/2022 05/20/2023 Overview (10/09/2022): [facility] FOR DEL 1st Trimester: [x] Dating Criteria: L=1 [...] 1hr GTT (24-28wks): 96 [x] Flu Shot (Oct-Dec): N/A [x] Tdap (27-36wks): 07/24/22 [x] Rhogam [...] education: completed in all 3 trimesters [x] Aquatic Habitat Biologist: remains undecided, going to look today before IOL [x] Car seat discussed [x] PP depression counseling Immunizations Immunization Administration Dates Next Due DTaP [...] 02/19/2006 Tdap 09/24/2023, 3,06/16/2021,12/03 Varicella 12/16/2023, 3,08/07/2021,06/04,10/05/2008,03/16/2007 Social History Tobacco Use Types Packs/Day Years Used Date Smoking Tobacco: Never Smokeless Tobacco: Never Tobacco Cessation:Counseling Given: Not Answered Alcohol Use Standard Drinks/Week Comments Never 0 (1 standard drink = 0.6 oz pur e alcohol) [facility] Utilities Answer Date Recorded In the past 12 months has e [employer], gas, oil, or water [employer] threatened to shut off services in your [...] How often do you attend chur or hoahaoism services? More than 4 times per year 12/16/2023 Do you belong to any clubs o r organizations such as sikh groups, unions, fraternal or athletic groups, or [...] staff should administer the PHQ-9) 0 10/09/2022 [facility] Occupat ional Health - [...] place to sleep or slept in a penitentiary (including now)? No 04/19/2023 [place] Depression Scale Answer Date Recorded [place] Depression Scale Total 6 08/27/2023 The thought [...] any time in the past 12 m [facility], were you homeless or living in a penitentiary (including now)? No 12/16/2023 Personal Safety Answer [...] Sex Assigned at Female 03/29/2024 11:30 AM DIRECT CARE WORKER Legal Sex Female 6:07 AM DIRECT CARE WORKER Gender Identity Female 03/29/2024 11:30 AM DIRECT CARE WORKER Sexual Orientation Straight 03/29/2024 11 :30 AM DIRECT CARE WORKER Last Filed Vital Signs Vital Sign Reading Time Taken Comments Blood Pressure 112/71 03/29/2024 11:24 AM DIRECT CARE WORKER Pulse 84 03/28/2024 6:20 AM DIRECT CARE WORKER Temperature 37 C (98.6 F) 03/28/2024 1:43 AM DIRECT CARE WORKER Respiratory Rate 16 03/28/2024 6:20 AM DIRECT CARE WORKER Oxygen Saturation 100% 03/28/2024 6:20 AM DIRECT CARE WORKER Inhaled Oxygen Concentration - - Weight 73.9 kg (163 lb) 03/29/2024 11:24 AM DIRECT CARE WORKER Height 162.6 cm (5' 4 ) 03/29/2024 11:24 AM DIRECT CARE WORKER Body Mass Index 27.98 03/29/2024 11:24 AM DIRECT CARE WORKER Plan of Treatment Not on file Procedures Procedure Name Priority Date/Time Associated Diagnosis Comments POCT HCG, URINE Routine 03/28/2024 6:14 AM DIRECT CARE WORKER N. GONORRHOEAE/C. TRACHOMATIS AMPLIFICATION Routine 07/31/2023 10:58 AM CDT HEPATITIS C ANTIBODY Routine 04/19/2023 11:59 AM DIRECT CARE WORKER Encounter for supervision of other normal in first trimester from Last 3 Months or Most Recently Relevant to Health Maintenance Results * POCT hCG, urine (03/28/2024 6:14 AM DIRECT CARE WORKER) HCG, ur, POC Negative Negative Lot Number [id number] QC Backgroud Clear Acceptable QC Control Line Acceptable Urine 03/28/2024 6:14 AM DIRECT CARE WORKER us Jinny Devine MD POINT OF CARE TEST ORD ERABLES Final Result * N. gonorrhoeae/C. trachomatis Amplification Urine (07/31/2023 10:58 AM CDT) C. trachomatis Not Detected Not Detected [facility] N. gonorrhoeae Not Detected Not Detected [facility] Comment: Interpretive Data This assay detects Chlamydia trachomatis and Neisseria gonorrhoeae by nucleic acid amplification testing (NAAT). This assay has been cleared by the [place] Food and Drug administration. The performance characteristics of this test have been verified by the [facility] Molecular Infectious Disease laboratory. The performance characteristics of this test have not been evaluated in individuals less than 14 years of age. Current Interpretive Data last revised 2022. Urine (None) 07/31/2023 10:5 8 AM CDT 07/31/2023 11:18 AM CDT Yolanda Mims MD LAB MICROBIOLOGY - G ENERAL ORDERABLES Final Result Performing Organization Address City/[facility]/ZIP Co de Phone Number [facility] [place] [address] [facility] * Hepatitis C antibody Blood (04/19/2023 11:59 AM DIRECT CARE WORKER) Pathologist [facility] Hep C Ab Nonreactive Nonreactive [facility] Comment:Antibodies to HCV no t detected. Does NOT exclude the possibility of recent exposure to HCV. Current interpretive data was last revised on 21 Blood 04/19/2023 11:5 9 AM DIRECT CARE WORKER 04/19/2023 12:31 PM DIRECT CARE WORKER Niko John MD LAB MICROBIOLOGY - GENERAL ORDERABLES Final Result [facility] [place] [address] from Last 3 Months or Most Recently Relevant to Health Maintenance Insurance [facility] IDPA [facility] [place] PPO [facility] PLAN [facility] stage setting painter apprentice [facility] ACCESS Advance Directives For more information, please contact: [phone] * Full Code (Latest Code Status on [...] 3:12 PM 08/07/2021 6:55 PM Care Teams Automatic Corn Grinder Operator Relationship Specialty Start Date End Date Tin Rodriguez NP [address] [place] [address] PCP - General Family Medicine 03/29/24
[2024-05-02 20:55] VITALS: BP 121/73; PULSE 81; RESP 15; TEMP 37.2; O2SAT 99
--- NOTE | 2024-05-02 21:56 | ED.BACK ---
HPI - Back Pain/Injury General Chief Complaint: Back Pain/Injury Stated Complaint: back/neck pain Time Seen by Provider: 05/02/24 21:22 Source: patient Mode of arrival: ambulatory Limitations: no limitations History of Present Illness HPI Narrative: This is a 18-year-old female who presents to the ED via EMS for chief complaint of back pain following a fall today. Patient states that she was standing on the counter and putting spices we. States that she lost her footing and fell straight to her back down to the floor. Denies head injury. Denies LOC. states the pain starts in the middle back and shoots superiorly and inferiorly. Denies radicular pain. Denies numbness, weakness, nausea, vomiting. Related Data Allergies Allergy/AdvReac Type Severity Reaction Status Date / Time codeine Allergy Swelling Verified 05/02/24 20:53 of Lip/Tongue/Throat Review of Systems Review of Systems: All systems as [facility] Past Medical History Medical History No active medical problems Social History Social History Social History: Denies alcohol or tobacco. Occasional marijuana Smoking status: Never smoker Exam Narrative: GENERAL: Well-appearing, well-nourished, and in no acute distress. HEAD: Normocephalic, atraumatic. EYES: PERRLA and EOMI. ENT: Nares clear, no rhinorrhea or epistaxis. Mucous membranes moist. Oropharynx without tonsillar hypertrophy exudate or other lesions. NECK: Supple. No adenopathy or masses. CHEST: No respiratory distress. Clear to auscultation. No wheezes rales or rhonchi HEART: Regular rate and rhythm. No murmur heard. Normal peripheral pulses. ABDOMEN: Soft, nontender, nondistended, normal active bowel sounds. MSK: Midline spinal tenderness throughout the CT LS spine. Normal range of motion. No edema. SKIN: Warm, dry, no rash. NEURO: Alert and oriented x4. No focal deficits. 5/5 strength and sensation to the upper and lower extremities. PSYCH: Normal mood and affect. Course Vital Signs Vital signs: Vital Signs Temperature 98.9 F 05/02/24 20:55 Pulse Rate 81 05/02/24 20:55 Respiratory Rate 15 03/11/25 20:55 Blood Pressure 121/73 05/02/24 20:55 Pulse Oximetry 99 05/02/24 20:55 Oxygen Delivery Room Air 05/02/24 20:55 Temperature 98.9 F 05/02/24 20:55 Pulse Rate 72 05/03/24 00:06 Respiratory Rate 15 05/03/24 00:06 Blood Pressure 120/72 05/03/24 00:06 Pulse Oximetry 99 05/03/24 00:06 Oxygen Delivery Room Air 05/02/24 20:55 MDM - Back Pain/Injury MDM Narrative Medical decision making narrative: 18-year-old female who presents to the ED after falling off of a counter and has back pain. Vitals are normal. Exam does show midline tenderness throughout the spine. No neurologic deficits. CT imaging of the C, T, L, S spine showed no acute traumatic findings. She was given Toradol and Tylenol here with relief symptoms. Pt will be discharged in stable condition. Return precautions given and supportive measures discussed. Pt is understanding and agreeable with plan for discharge and follow-up with PCP. Lab Data Labs: Lab Results 05/02/24 Range/Units 22:12 POC Urine HCG, Qual Negative (Negative) Discharge Plan Discharge Clinical Impression: Fall Patient Disposition: Home, Self-Care Condition: Stable Instructions: Antibiotic Form Additional Instructions: Your exam and imaging today are reassuring overall. Please take Tylenol 500 mg every 6 hours as needed for pain. If you have any new or worsening symptoms please return to the ER for further evaluation. Patient Language: Citizen Of [place] Prescriptions: No Action vit,nisha [id number]-[id number] 28 mg iron- 1 mg tablet 1 tablet PO DAILY Qty: 30 0RF acetaminophen 500 mg tablet 1,000 mg PO TID PRN (Reason: carmen) 7 Days Qty: 42 0RF ibuprofen 800 mg tablet 800 mg PO TID PRN (Reason: pain) 7 Days Qty: 21 0RF ondansetron 4 mg tablet,disintegrating 4 mg PO Q8H PRN (Reason: nausea and vomiting) Qty: 10 0RF Follow-up/Referrals: UNKNOWN,DOCTOR [Primary Care Provider] - Stand Alone Forms: Work/School Release IP Time of Disposition: 23:53
[2024-05-02] MEDS: KETOROLAC 30 MG/ML VIAL (*BKC) IM (22:02)
[2024-05-02] MEDS: ACETAMINOPHEN 500 MG TABLET 1000 MG PO (22:02)
--- OUTSIDE RECORDS SUMMARY | 2024-05-02 22:04 | XMS_ITS | Clinical Summary ---
Author Organization [address] Address [facility] [place] [address] Care Team Providers Care Global Process Owner Name Role Phone Tin Rodriguez NP Primary Care Provider Allergies Active Allergy Reactions Criticality Noted Date Comments Codeine Swelling,Stomach upset Medium 03/18/2016 Stomach/GI Upset Medications vit 37-rusi-[id number]-dha 27mg iron- 800 mcg-250 mg capsule Take [...] Route Frequency Start Date End Date Status [facility] ferrous sulfate/placebo (/IVAD2 TRIAL) tablet 1 tabletIndications:Iron [...] # Disposition: Follow up task sent to [facility] scheduling pool. Continue routine care. Moderate persistent asthma 08/12/2023 Overview (11/23/2023): - Age at Diagnosis: Never had diagnosis until this , feels SOB frequently - History of hospitalizations/intubations?: No - Classifications: mild intermittent, mild persistent, moderate persistent, severe persistent - Pre- classification: None - Current classification: moderate persistent - Pre- regimen: None - Baseline peak flow: 180/270/230 (08/12/23) - Textile Cutting Machine Operator/PCP: Pt has PCP from years ago, will [...] If patient does not have PCP or smoked meat preparer to manage outside of consider referral: pulmonology [...] daily nausea. Has not been able to grape picker meds due to insurance issues. Able [...] associated with increased obstetric risks. These include gftkr-otn-qwdrxoeirdy-age (SGA) , and infant mortality. Plan: [] [...] education: completed in all 3 trimesters [] Inside Sales Specialist: discussed 11/22 [] Car seat discussed [] [...] # Disposition: Follow up task sent to [facility] scheduling pool. Desires discharge home today. [...] education: completed in all 3 trimesters [x] Inside Sales Specialist: remains undecided, going to look today before IOL [x] Car seat discussed [x] PP depression counseling Encounters Date Type Department Care Team Description 03/29/2024 11:30 AM RADIOGRAPHER TECHNOLOGIST Procedure visit [facility] Obstetrics and Gynecology [facility] 7th Floor [address] [place] [address] 7, Ob Cms Provider 2 Coh Nexplanon removal (Primary Dx); Encounter for initial prescription of contraceptive pills 03/29/2024 [facility] CHW Eligibility Review [facility] Community Health Worker [address] [place] [address] [address] [place] [address] Rosie Benton 03/28/2024 3:39 AM RADIOGRAPHER TECHNOLOGIST - 03/28/2024 6:26 AM RADIOGRAPHER TECHNOLOGIST Emergency [facility] Emergency Department [address] [place] [address] Janel Bales MD Encounter for surveillance of Nexplanon subdermal contraceptive (Primary Dx); Impingement of left shoulder Discharge Disposition: Discharge to home or self care 03/28/2024 Telephone [facility] [address] [place] [address] Floor [address] [place] [phone] Ruthie Alvarado 03/27/2024 Telephone [facility] Clinic [address] [place] [address] Floor [address] [place] [address] Sirisha Crews RN 03/07/2024 Telephone [facility] Clinic [address] [place] [address] [address] [place] [phone] Blaise Vences from Last 3 Months Immunizations [...] drink = 0.6 oz pur e alcohol) [facility] Utilities Answer Date Recorded In the past 12 months has [employer], oil, or water company threatened to shut [...] How often do you attend chur or worship services? More than 4 times per year 12/16/2023 Do you belong to any clubs o r organizations such as confucianist groups, unions, fraternal or athletic groups, or [...] staff should administer the PHQ-9) 0 10/09/2022 [facility] - Occupational Stress Questionnaire Answer [...] place to sleep or slept in a residential (including now)? No 04/19/2023 [place] Depression Scale Answer Date Recorded [place] Depression Scale Total 6 08/27/2023 The thought [...] any time in the past 12 m [facility], were you homeless or living in a residential (including now)? No 12/16/2023 Personal Safety Answer [...] Sex Assigned at Female 03/29/2024 11:30 AM RADIOGRAPHER TECHNOLOGIST Legal Sex Female 6:07 AM RADIOGRAPHER TECHNOLOGIST Gender Identity Female 03/29/2024 11:30 AM RADIOGRAPHER TECHNOLOGIST Sexual Orientation Straight 03/29/2024 11 :30 AM RADIOGRAPHER TECHNOLOGIST Obstetrics History Para Term AB IAB SAB [...] KELLI NAIR, Mauro Ahuja MD Complications:None Delivery Location:[facility] Main C ampus ([facility] 58LD) 2022 Term 39w 4d 6h 30m 6h 03m/0h 25m/0h 02m 2.76 kg (6 lb 1.4 oz) F Vagina l Epidur al N Livin g 8 9 ADRIANA NAIR Julia Ellen, MD Complications:None Delivery Location:[facility] Main C ampus ([facility] 58LD) 2023 Term 40w 6d 0h 15m 0h 11m/0h 04m 3.15 kg (6 lb 15.1 oz) M Vagina l None N Livin g 8 9 Murray whittaker, Chadwick dia MD Complications:None Delivery Location:[facility] Main C ampus ([facility] 58LD) Last Filed Vital Signs Vital Sign Reading Time Taken Comments Blood Pressure 112/71 03/29/2024 11:24 AM RADIOGRAPHER TECHNOLOGIST Pulse 84 03/28/2024 6:20 AM RADIOGRAPHER TECHNOLOGIST Temperature 37 C (98.6 F) 03/28/2024 1:43 AM RADIOGRAPHER TECHNOLOGIST Respiratory Rate 16 03/28/2024 6:20 AM RADIOGRAPHER TECHNOLOGIST Oxygen Saturation 100% 03/28/2024 6:20 AM RADIOGRAPHER TECHNOLOGIST Inhaled Oxygen Concentration - - Weight 73.9 kg (163 lb) 03/29/2024 11:24 AM RADIOGRAPHER TECHNOLOGIST Height 162.6 cm (5' 4 ) 03/29/2024 11:24 AM RADIOGRAPHER TECHNOLOGIST Body Mass Index 27.98 03/29/2024 11:24 AM RADIOGRAPHER TECHNOLOGIST Plan of Treatment Health Maintenance Due Date [...] POCT HCG, URINE Routine 03/28/2024 6:14 AM RADIOGRAPHER TECHNOLOGIST N. GONORRHOEAE/C. TRACHOMATIS AMPLIFICATION Routine 07/31/2023 10:58 AM CDT HEPATITIS C ANTIBODY Routine 04/19/2023 11:59 AM RADIOGRAPHER TECHNOLOGIST Encounter for supervision of other normal in first trimester from Last 3 Months or Most Recently Relevant to Health Maintenance Results * POCT hCG, urine (03/28/2024 6:14 AM RADIOGRAPHER TECHNOLOGIST) Pathologist [facility] HCG, ur, POC Negative Negative Lot Number [id number] QC Backgroud Clear Acceptable QC Control Line Acceptable Urine 03/28/2024 6:14 AM RADIOGRAPHER TECHNOLOGIST Jinny Devine MD POINT OF CARE TEST ORD ERABLES Final Result * N. gonorrhoeae/C. trachomatis Amplification Urine (07/31/2023 10:58 AM CDT) Pathologist [facility] C. trachomatis Not Detected Not Detected [facility] N. gonorrhoeae Not Detected Not Detected [facility] Comment: Interpretive Data This assay detects Chlamydia trachomatis and Neisseria gonorrhoeae by nucleic acid amplification testing (NAAT). This assay has been cleared by the [place] Food and Drug administration. The performance characteristics of this test have been verified by the [facility] Molecular Infectious Disease laboratory. The performance characteristics of this test have not been evaluated in individuals less than 14 years of age. Current Interpretive Data last revised 2022. Urine (None) 07/31/2023 10:5 8 AM CDT 07/31/2023 11:18 AM CDT Yolanda Mims MD LAB MICROBIOLOGY - G ENERAL ORDERABLES Final Result [facility] [place] [address] [facility] * Hepatitis C antibody Blood (04/19/2023 11:59 AM RADIOGRAPHER TECHNOLOGIST) Pathologist [facility] Hep C Ab Nonreactive Nonreactive [facility] Comment:Antibodies to HCV no t detected. Does NOT exclude the possibility of recent exposure to HCV. Current interpretive data was last revised on 21 Blood 04/19/2023 11:5 9 AM RADIOGRAPHER TECHNOLOGIST 04/19/2023 12:31 PM RADIOGRAPHER TECHNOLOGIST Niko John MD LAB MICROBIOLOGY - GENERAL ORDERABLES Final Result Performing Organization Address City/State/[facility] Co de Phone Number REG [facility] Department [place] [address] from Last 3 Months or Most Recently Relevant to Health Maintenance Insurance [facility] IDPA [facility] PPO [facility] PLAN [facility] ACCESS Advance Directives For more information, please contact: [phone] * Full Code (Latest Code Status on [...] 3:12 PM 08/07/2021 6:55 PM Care Teams Global Process Owner Relationship Specialty Start Date End Date Tin Rodriguez NP [address] [place] [address] PCP - General Family Medicine 03/29/24
--- OUTSIDE RECORDS SUMMARY | 2024-05-02 22:04 | XMS_ITS | Encounter Summary ---
Author Organization [facility] Healthcare Address [address] [place] [address] Care Team Providers Care Horse And Wagon Driver Name Role Phone iTn Rodriguez NP Primary Care Provider [phone] Encounter Details Date Type Department Care Team (Late st Contact Info) Description 10/07/2023 Social Work Obstetrics and Gynecology Clinic [address] [facility] 3rd Floor [address] [place] [address] Senthil Lomas LCSW Social History Tobacco Use Types Packs/Day Years Used Date Smoking Tobacco: Never Smokeless Tobacco: Never Alcohol Use Standard Drinks/Week Comments Never 0 (1 standard drink = 0.6 oz pur e alcohol) [facility] Utilities Answer Date Recorded In the past 12 months has e [employer], gas, oil, or water [employer] threatened to shut off services in your [...] than three times a week 04/19/2023 Attends [employer] Not on file 04/19 Active Member [...] staff should administer the PHQ-9) 0 10/09/2022 [facility] - Occupational Stress Questionnaire Answer Date [...] place to sleep or slept in a long term (including now)? No 04/19/2023 [place] Depression Scale Answer Date Recorded [place] Depression Scale Total 6 08/27/2023 The thought [...] Sex Assigned at Female 03/29/2024 11:30 AM PERSONAL CARE ASSISTANT Legal Sex Female 6:07 AM PERSONAL CARE ASSISTANT Gender Identity Female 03/29/2024 11:30 AM PERSONAL CARE ASSISTANT Sexual Orientation Straight 03/29/2024 11 :30 AM PERSONAL CARE ASSISTANT documented as of this encounter Plan of Treatment Not on file documented as of this encounter Visit Diagnoses Not on filedocumented in this encounter Additional Health Concerns Infection Onset Date Last Indicated Resolved Time COVID: Suspected 11/20/2023 11/20/2023 11/20/2023 3:42 PM CDT Rhino/Enterovirus 11/20/2023 11/20/2023 11/27/2023 3:05 AM CDT documented as of this encounter Care Teams Horse And Wagon Driver Relationship Specialty Start Date End Date Tin Rodriguez NP [address] [place] [address] PCP - General Family Medicine 03/29/24 documented as of this encounter
--- OUTSIDE RECORDS SUMMARY | 2024-05-02 22:05 | XMS_ITS | Encounter Summary ---
Author Organization [facility] Healthcare Address [address] [place] [address] Care Team Providers Care Tractor Engine Assembler Name Role Phone Tin Rodriguez NP Primary Care Provider [phone] Encounter Details Date Type Department Care Team (Late st Contact Info) Description 09/04/2022 Treatment [facility] PATHOLOGY [address] [address] Armando Cunningham MD Social History Tobacco Use [...] often do you attend chur ch or yazidism services? More than 4 times per year 02/24/2022 Do you belong to any clubs o r organizations such as rastafarian groups, unions, fraternal or athletic groups, or [...] and heating? Not hard at all 02/24/2022 [facility] of Occupat ional Health - Occupational Stress [...] place to sleep or slept in a fdc (including now)? No 02/24/2022 [place] Depression Scale Answer Date Recorded [place] Depression Scale Total 6 07/07/2022 The thought of harming myself has occurred to me . Never 07/07/2022 Education Answer Date Recorded What is the highest level of school you have completed or the highest degree you have received? 11th grade 02/24/2022 Comments Yes Sex and Gender Information Value Date Recorded Sex Assigned at Female 03/29/2024 11:30 AM MODELING INSTRUCTOR Legal Sex Female 6:07 AM MODELING INSTRUCTOR Gender Identity Female 03/29/2024 11:30 AM MODELING INSTRUCTOR Sexual Orientation Straight 03/29/2024 11 :30 AM MODELING INSTRUCTOR documented as of this encounter Progress Notes [...] future transfusions. Contact Information: Please contact the [facility] Blood [facility] with any questions. This report [...] documented as of this encounter Care Teams Tractor Engine Assembler Relationship Specialty Start Date End Date Tin Rodriguez NP [address] [place] [address] PCP - General Family Medicine 03/29/24 documented as of this encounter
--- OUTSIDE RECORDS SUMMARY | 2024-05-02 22:05 | XMS_ITS | Referral Summary ---
Author Organization [place] [id number] [facility] Address [address] [place] [address] Care Team Providers Care Galley Worker Name Role Phone Tin Rodriguez NP Primary Care Provider [phone] Encounters Date Type Department Care Team Description 03/29/2024 11:30 AM CLASSIFICATION COUNSELOR Procedure visit [facility] Obstetrics and Gynecology [address] [place] [address] 7th Floor [address] [place] [address] 7, Ob Cms Provider 2 Coh Nexplanon removal (Primary Dx); Encounter for initial prescription of contraceptive pills 03/29/2024 [facility] CHW Eligibility Review [facility] Community Health Worker [address] [place] [address] [address] [place] [address] Rosie Benton 03/28/2024 Telephone Obstetrics and Gynecology Clinic [address] [place] [address] 3rd Floor [address] [place] [address] Ruthie Alvarado 03/28/2024 3:39 AM CLASSIFICATION COUNSELOR - 03/28/2024 6:26 AM CLASSIFICATION COUNSELOR Emergency [facility] Emergency Department [address] [place] [id number] Janel Bales MD Encounter for surveillance of Nexplanon subdermal contraceptive (Primary Dx); Impingement of left shoulder Discharge Disposition: Discharge to home or self care 03/27/2024 Telephone Obstetrics and Gynecology Clinic [address] [place] [address] 3rd Floor [address] [place] [address] Sirisha Crews RN 03/07/2024 Telephone Obstetrics and Gynecology Clinic [address] [facility] 3rd Floor [address] [place] [address] Blaise Vences from Last 3 Months Allergies Active Allergy Reactions Criticality Noted Date Comments Codeine Swelling,Stomach upset Medium 03/18/2016 Stomach/GI Upset Medications vit 67-naxg-tohrh-dha 27mg iron- 800 mcg-250 mg capsule Take [...] Route Frequency Start Date End Date Status INV-[facility] ferrous sulfate/placebo (2021-06-/IVAD2 TRIAL) tablet 1 tabletIndications:Iron [...] # Disposition: Follow up task sent to [facility] scheduling pool. Continue routine care. Moderate persistent asthma 08/12/2023 Overview (11/23/2023): - Age at Diagnosis: Never had diagnosis until this , feels SOB frequently - History of hospitalizations/intubations?: No - Classifications: mild intermittent, mild persistent, moderate persistent, severe persistent - Pre- classification: None - Current classification: moderate persistent - Pre- regimen: None - Baseline peak flow: 180/270/230 (08/12/23) - Administration Clerk/PCP: Pt has PCP from years ago, will [...] If patient does not have PCP or senior application software engineer to manage outside of consider referral: pulmonology [...] daily nausea. Has not been able to pickling tank operator meds due to insurance issues. Able to [...] associated with increased obstetric risks. These include xdspf-htv-ioukfpmprkv-age (SGA) , and mortality. Plan: [] ASA [...] education: completed in all 3 trimesters [] Waiter/Waitress Captain: discussed 11/22 [] Car seat discussed [] [...] # Disposition: Follow up task sent to [facility] scheduling pool. Desires discharge home today. Encounter [...] education: completed in all 3 trimesters [x] Waiter/Waitress Captain: remains undecided, going to look today before [...] drink = 0.6 oz pur e alcohol) [facility] Utilities Answer Date Recorded In the past 12 months has e [employer], gas, oil, or water [employer] threatened to shut off services in your [...] How often do you attend chur or orthodoxy services? More than 4 times per year 12/16/2023 Do you belong to any clubs o r organizations such as holiness groups, unions, fraternal or athletic groups, or [...] staff should administer the PHQ-9) 0 10/09/2022 [facility] of Occupat ional Health - Occupational [...] a long term (including now)? No 04/19/2023 Warner Depression Scale Answer Date Recorded Warner Depression Scale Total 6 08/27/2023 The thought [...] any time in the past 12 m [facility], were you homeless or living in a long term (including now)? No 12/16/2023 Personal Safety Answer [...] Sex Assigned at Female 03/29/2024 11:30 AM CLASSIFICATION COUNSELOR Legal Sex Female 6:07 AM CLASSIFICATION COUNSELOR Gender Identity Female 03/29/2024 11:30 AM CLASSIFICATION COUNSELOR Sexual Orientation Straight 03/29/2024 11 :30 AM CLASSIFICATION COUNSELOR Last Filed Vital Signs Vital Sign Reading Time Taken Comments Blood Pressure 112/71 03/29/2024 11:24 AM CLASSIFICATION COUNSELOR Pulse 84 03/28/2024 6:20 AM CLASSIFICATION COUNSELOR Temperature 37 C (98.6 F) 03/28/2024 1:43 AM CLASSIFICATION COUNSELOR Respiratory Rate 16 03/28/2024 6:20 AM CLASSIFICATION COUNSELOR Oxygen Saturation 100% 03/28/2024 6:20 AM CLASSIFICATION COUNSELOR Inhaled Oxygen Concentration - - Weight 73.9 kg (163 lb) 03/29/2024 11:24 AM CLASSIFICATION COUNSELOR Height 162.6 cm (5' 4 ) 03/29/2024 11:24 AM CLASSIFICATION COUNSELOR Body Mass Index 27.98 03/29/2024 11:24 AM CLASSIFICATION COUNSELOR Plan of Treatment Not on file Procedures Procedure Name Priority Date/Time Associated Diagnosis Comments POCT HCG, URINE Routine 03/28/2024 6:14 AM CLASSIFICATION COUNSELOR N. GONORRHOEAE/C. TRACHOMATIS AMPLIFICATION Routine 07/31/2023 10:58 AM CDT HEPATITIS C ANTIBODY Routine 04/19/2023 11:59 AM CLASSIFICATION COUNSELOR Encounter for supervision of other normal in first trimester from Last 3 Months or Most Recently Relevant to Health Maintenance Results * POCT hCG, urine (03/28/2024 6:14 AM CLASSIFICATION COUNSELOR) HCG, ur, POC Negative Negative Lot Number [id number] QC Backgroud Clear Acceptable QC Control Line Acceptable Urine 03/28/2024 6:14 AM CLASSIFICATION COUNSELOR us Jinny Devine MD POINT OF CARE TEST ORD ERABLES Final Result * N. gonorrhoeae/C. trachomatis Amplification Urine (07/31/2023 10:58 AM CDT) C. trachomatis Not Detected Not Detected [facility] N. gonorrhoeae Not Detected Not Detected [facility] Comment: Interpretive Data This assay detects Chlamydia trachomatis and Neisseria gonorrhoeae by nucleic acid amplification testing (NAAT). This assay has been cleared by the [place] Food and Drug administration. The performance characteristics of this test have been verified by the [facility] Molecular Infectious Disease laboratory. The performance characteristics of this test have not been evaluated in individuals less than 14 years of age. Current Interpretive Data last revised 2022. Urine (None) 07/31/2023 10:5 8 AM CDT 07/31/2023 11:18 AM CDT Yolanda Mims MD LAB MICROBIOLOGY - G ENERAL ORDERABLES Final Result Performing Organization Address City/[facility]/ZIP Co de Phone Number [facility] [place] [address] [facility] * Hepatitis C antibody Blood (04/19/2023 11:59 AM CLASSIFICATION COUNSELOR) Pathologist [facility] Hep C Ab Nonreactive Nonreactive [facility] Comment:Antibodies to HCV no t detected. Does NOT exclude the possibility of recent exposure to HCV. Current interpretive data was last revised on 21 Blood 04/19/2023 11:5 9 AM CLASSIFICATION COUNSELOR 04/19/2023 12:31 PM CLASSIFICATION COUNSELOR Niko John MD LAB MICROBIOLOGY - GENERAL ORDERABLES Final Result [facility] [place] [address] from Last 3 Months or Most Recently Relevant to Health Maintenance Insurance [facility] IDPA [facility] PPO [facility] HEALTH PLAN [facility] steam box tender [facility] ACCESS Advance Directives For more information, please contact: [phone] * Full Code (Latest Code Status on [...] 3:12 PM 08/07/2021 6:55 PM Care Teams Galley Worker Relationship Specialty Start Date End Date Tin Rodriguez NP [address] [place] [address] PCP - General Family Medicine 03/29/24
[2024-05-02 22:16] LABS: BEDSIDEPREGUCG Negative (Negative)
[2024-05-03 00:06] VITALS: BP 120/72; PULSE 72; RESP 15; O2SAT 99
== END 2024-05-03 00:07 | disposition home or self-care (01) ==
PROVIDERS: Emergency Provider Physician Assistant
DX: M54.9 Dorsalgia, unspecified (principal); W08.XXXA Fall from other furniture, initial encounter
CPT/HCPCS: 72125; 72128; 72131; 81025; 96372; 99284; A9270; J1885

== ENCOUNTER 2024-07-15 17:32 | Emergency (ER) | payer BC, SELFPAY ==
[2024-07-15 17:33] VITALS: BP 114/63; PULSE 80; RESP 14; TEMP 36.5; O2SAT 98
--- OUTSIDE RECORDS SUMMARY | 2024-07-15 17:34 | XMS_ITS | Encounter Summary ---
Author Organization [facility] Healthcare Address [address] [place] [address] Care Team Providers Care Instrument Tech Name Role Phone Tin Rodriguez NP Primary Care Provider [phone] Encounter Details Date Type Department Care Team (Late st Contact Info) Description 10/07/2023 Social Work Obstetrics and Gynecology Clinic [address] [facility] 3rd Floor [address] [place] [address] Senthil Lomas LCSW Social History Tobacco Use Types Packs/Day Years Used Date Smoking Tobacco: Never Smokeless Tobacco: Never Alcohol Use Standard Drinks/Week Comments Never 0 (1 standard drink = 0.6 oz pur e alcohol) [facility] Utilities Answer Date Recorded In the past 12 months has e [employer], gas, oil, or water [employer]ig[employer] threatened to shut off services in your [...] than three times a week 04/19/2023 Attends Judaism Services Not on file 04/19 Active Member [...] staff should administer the PHQ-9) 0 10/09/2022 [facility] partners[facility] - Occupational Stress Questionnaire Answer Date Recorded [...] slept in a fdc (including now)? No 04/19/2023 Dozier Depression Scale Answer Date Recorded [place]zier Depression Scale Total 6 08/27/2023 The thought [...] Sex Assigned at Female 03/29/2024 11:30 AM QUARRY EXTRACTION WORKER Legal Sex Female 6:07 AM QUARRY EXTRACTION WORKER Gender Identity Female 03/29/2024 11:30 AM QUARRY EXTRACTION WORKER Sexual Orientation Straight 03/29/2024 11 :30 AM QUARRY EXTRACTION WORKER documented as of this encounter Plan of Treatment Not on file documented as of this encounter Visit Diagnoses Not on filedocumented in this encounter Additional Health Concerns Infection Onset Date Last Indicated Resolved Time COVID: Suspected 11/20/2023 11/20/2023 11/20/2023 3:42 PM CDT Rhino/Enterovirus 11/20/2023 11/20/2023 11/27/2023 3:05 AM CDT documented as of this encounter Care Teams Instrument Tech Relationship Specialty Start Date End Date Tin Rodriguez NP [address] [place] [address] PCP - General Family Medicine 03/29/24 documented as of this encounter
--- OUTSIDE RECORDS SUMMARY | 2024-07-15 17:34 | XMS_ITS | Referral Summary ---
Author Organization [address] Address [facility] [place] [address] Care Team Providers Care Extension Work Instructor Name Role Phone Tin Rodriguez NP Primary Care Provider Allergies Active Allergy Reactions Criticality Noted Date Comments Codeine Swelling,Stomach upset Medium 03/18/2016 Stomach/GI Upset Medications vit 99-mtfz-fgisq-dha 27mg iron- 800 mcg-250 mg capsule Take [...] Route Frequency Start Date End Date Status IN[facility] ferrous sulfate/placebo (/IVAD2 TRIAL) tablet 1 tabletIndications:Iron [...] - Baseline peak flow: 180/270/230 (08/12/23) - Bicycle Messenger/PCP: Pt has PCP from years ago, will [...] If patient does not have PCP or boiler out to manage outside of consider referral: pulmonology [...] daily nausea. 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 Able to [...] associated with increased obstetric risks. These include vzink-ypb-wyqosjtccsd-age (SGA) , and infant mortality. Plan: [] [...] education: completed in all 3 trimesters [] Director Of Marketing Communications: discussed 11/22 [] Car seat discussed [] [...] education: completed in all 3 trimesters [x] Director Of Marketing Communications: remains undecided, going to look today before [...] drink = 0.6 oz pur e alcohol) [facility] Utilities Answer Date Recorded In the past 12 months has e electric, gas, oil, or water company threatened to shut [...] 12/16/2023 How often do you attend chur ch or muslim services? More than 4 times per year 12/16/2023 Do you belong to any clubs o r organizations such as worship groups, unions, fraternal or athletic groups, or [...] staff should administer the PHQ-9) 0 10/09/2022 [facility] - Occupational Stress Questionnaire Answer Date [...] place to sleep or slept in a fci (including now)? No 04/19/2023 [place] Depression Scale Answer Date Recorded [place] Depression Scale Total 6 08/27/2023 The thought [...] any time in the past 12 m [facility], were you homeless or living in a fci (including now)? No 12/16/2023 Personal Safety Answer [...] Sex Assigned at Female 03/29/2024 11:30 AM LITHOGRAPHY CONTACT WORKER Legal Sex Female 6:07 AM LITHOGRAPHY CONTACT WORKER Gender Identity Female 03/29/2024 11:30 AM LITHOGRAPHY CONTACT WORKER Sexual Orientation Straight 03/29/2024 11 :30 AM LITHOGRAPHY CONTACT WORKER Last Filed Vital Signs Vital Sign Reading Time Taken Comments Blood Pressure 112/71 03/29/2024 11:24 AM LITHOGRAPHY CONTACT WORKER Pulse 84 03/28/2024 6:20 AM LITHOGRAPHY CONTACT WORKER Temperature 37 C (98.6 F) 03/28/2024 1:43 AM LITHOGRAPHY CONTACT WORKER Respiratory Rate 16 03/28/2024 6:20 AM LITHOGRAPHY CONTACT WORKER Oxygen Saturation 100% 03/28/2024 6:20 AM LITHOGRAPHY CONTACT WORKER Inhaled Oxygen Concentration - - Weight 73.9 kg (163 lb) 03/29/2024 11:24 AM LITHOGRAPHY CONTACT WORKER Height 162.6 cm (5' 4 ) 03/29/2024 11:24 AM LITHOGRAPHY CONTACT WORKER Body Mass Index 27.98 03/29/2024 11:24 AM LITHOGRAPHY CONTACT WORKER Plan of Treatment Not on file Procedures Procedure Name Priority Date/Time Associated Diagnosis Comments N. GONORRHOEAE/C. TRACHOMATIS AMPLIFICATION Routine 07/31/2023 10:58 AM CDT HEPATITIS C ANTIBODY Routine 04/19/2023 11:59 AM LITHOGRAPHY CONTACT WORKER Encounter for supervision of other normal in first trimester from Last 3 Months or Most Recently Relevant to Health Maintenance Results * N. gonorrhoeae/C. trachomatis Amplification Urine (07/31/2023 10:58 AM CDT) C. trachomatis Not Detected Not Detected [facility] N. gonorrhoeae Not Detected Not Detected [facility] Comment: Interpretive Data This assay detects Chlamydia trachomatis and Neisseria gonorrhoeae by nucleic acid amplification testing (NAAT). This assay has been cleared by the [place] Food and Drug administration. The performance characteristics of this test have been verified by the [facility] Molecular Infectious Disease laboratory. The performance characteristics of this test have not been evaluated in individuals less than 14 years of age. Current Interpretive Data last revised 2022. Urine (None) 07/31/2023 10:5 8 AM CDT 07/31/2023 11:18 AM CDT Yolanda Mims MD LAB MICROBIOLOGY - G ENERAL ORDERABLES Final Result Performing Organization Address City/[facility] Co de Phone Number [facility] [place] [address] [facility] * Hepatitis C antibody Blood (04/19/2023 11:59 AM LITHOGRAPHY CONTACT WORKER) Pathologist [facility] Hep C Ab Nonreactive Nonreactive [facility] Comment:Antibodies to HCV no t detected. Does NOT exclude the possibility of recent exposure to HCV. Current interpretive data was last revised on 21 Blood 04/19/2023 11:5 9 AM LITHOGRAPHY CONTACT WORKER 04/19/2023 12:31 PM LITHOGRAPHY CONTACT WORKER Niko John MD LAB MICROBIOLOGY - GENERAL ORDERABLES Final Result [facility] [place] [address] from Last 3 Months or Most Recently Relevant to Health Maintenance [place] [address] [place] [address] IDPA [facility] PPO [facility] PLAN [facility] ACCESS Advance Directives For more information, please contact: [phone] * Full Code (Latest Code Status on [...] 3:12 PM 08/07/2021 6:55 PM Care Teams Extension Work Instructor Relationship Specialty Start Date End Date Tin Rodriguez NP [address] [place] [address] PCP - General Family Medicine 03/29/24
--- OUTSIDE RECORDS SUMMARY | 2024-07-15 17:34 | XMS_ITS | Encounter Summary ---
Author Organization [facility] Healthcare Address [address] [place] [address] Care Team Providers Care International Project Engineer Name Role Phone Tin Rodriguez NP Primary Care Provider [phone] Encounter Details Date Type Department Care Team (Late st Contact Info) Description 09/04/2022 Treatment [facility] PATHOLOGY [address] [address] Armando Cunningham MD Social History Tobacco Use [...] often do you attend chur ch or denominational services? More than 4 times per year 02/24/2022 Do you belong to any clubs o r organizations such as moravian groups, unions, fraternal or athletic groups, or [...] and heating? Not hard at all 02/24/2022 [facility] - Occupational Stress [...] place to sleep or slept in a halfway (including now)? No 02/24/2022 [place] Depression Scale Answer Date Recorded [place] Stein Depression Scale Total 6 07/07/2022 The thought of harming myself has occurred to me . Never 07/07/2022 Education Answer Date Recorded What is the highest level of school you have completed or the highest degree you have received? 11th grade 02/24/2022 Comments Yes Sex and Gender Information Value Date Recorded Sex Assigned at Female 03/29/2024 11:30 AM [employer] Legal Sex Female 6:07 AM [employer] Gender Identity Female 03/29/2024 11:30 AM [employer] Sexual Orientation Straight 03/29/2024 11 :30 AM [employer] documented as of this encounter Progress Notes [...] future transfusions. Contact Information: Please contact the [facility] Blood Bank with any questions. This [...] documented as of this encounter Care Teams International Project Engineer Relationship Specialty Start Date End Date Tin Rodriguez NP [address] [place] [address] PCP - General Family Medicine 03/29/24 documented as of this encounter
--- OUTSIDE RECORDS SUMMARY | 2024-07-15 17:34 | XMS_ITS | Clinical Summary ---
Author Organization [address] Address [facility] [place] [address] Care Team Providers Care Pony Roll Finisher Name Role Phone Tin Rodriguez NP Primary Care Provider Allergies Active Allergy Reactions Criticality Noted Date Comments Codeine Swelling,Stomach upset Medium 03/18/2016 Stomach/GI Upset Medications vit 35-clac-nizmd-dha 27mg iron- 800 mcg-250 mg capsule Take [...] Route Frequency Start Date End Date Status INV-[facility] ferrous sulfate/placebo (/IVAD2 TRIAL) tablet 1 tabletIndications:Iron [...] # Disposition: Follow up task sent to [facility] scheduling pool. Continue routine care. Moderate persistent asthma 08/12/2023 Overview (11/23/2023): - Age at Diagnosis: Never had diagnosis until this , feels SOB frequently - History of hospitalizations/intubations?: No - Classifications: mild intermittent, mild persistent, moderate persistent, severe persistent - Pre- classification: None - Current classification: moderate persistent - Pre- regimen: None - Baseline peak flow: 180/270/230 (08/12/23) - Steno Typist/PCP: Pt has PCP from years ago, will [...] If patient does not have PCP or animal care service worker to manage outside of consider referral: pulmonology [...] nausea. Has not been able to pickling drum operator meds due to insurance issues. Able [...] associated with increased obstetric risks. These include nqllt-dvu-vgtptkppjdl-age (SGA) , and infant mortality. Plan: [] [...] education: completed in all 3 trimesters [] Box Brander: discussed 11/22 [] Car seat discussed [] [...] # Disposition: Follow up task sent to [facility] scheduling pool. Desires discharge home today. [...] education: completed in all 3 trimesters [x] Box Brander: remains undecided, going to look today before [...] drink = 0.6 oz pur e alcohol) [facility] Utilities Answer Date Recorded In the past 12 months has e Ritani, oil, or water [employer] threatened to shut off services in your [...] often do you attend chur ch or faith services? More than 4 times per year 12/16/2023 Do you belong to any clubs o r organizations such as zoroastrianism groups, unions, fraternal or athletic groups, or [...] staff should administer the PHQ-9) 0 10/09/2022 [facility] - [...] in a jail (including now)? No 04/19/2023 [place] Depression Scale Answer Date Recorded [place] Depression Scale Total 6 08/27/2023 The thought [...] any time in the past 12 m onths, were you homeless or living in a [...] Sex Assigned at Female 03/29/2024 11:30 AM CREEL HAND Legal Sex Female 6:07 AM CREEL HAND Gender Identity Female 03/29/2024 11:30 AM CREEL HAND Sexual Orientation Straight 03/29/2024 11 :30 AM CREEL HAND Obstetrics History Para Term AB IAB SAB [...] al N Livin g 7 9 KELLI NAIR Cory Scott, MD Complications:None Delivery Location:[facility] Main C ampus ([facility] 58LD) 2022 Term 39w 4d 6h 30m 6h 03m/0h 25m/0h 02m 2.76 kg (6 lb 1.4 oz) F Vagina l Epidur al N Livin g 8 9 ADRIANA NAIR Julia Ellen, MD Complications:None Delivery Location:[facility] Main C ampus ([facility] 58LD) 2023 Term 40w 6d 0h 15m 0h 11m/0h 04m 3.15 kg (6 lb 15.1 oz) M Vagina l None N Livin g 8 9 Murray whittaker, Chadwick dia MD Complications:None Delivery Location:[facility] Main C ampus ([facility] 58LD) Last Filed Vital Signs Vital Sign Reading Time Taken Comments Blood Pressure 112/71 03/29/2024 11:24 AM CREEL HAND Pulse 84 03/28/2024 6:20 AM CREEL HAND Temperature 37 C (98.6 F) 03/28/2024 1:43 AM CREEL HAND Respiratory Rate 16 03/28/2024 6:20 AM CREEL HAND Oxygen Saturation 100% 03/28/2024 6:20 AM CREEL HAND Inhaled Oxygen Concentration - - Weight 73.9 kg (163 lb) 03/29/2024 11:24 AM CREEL HAND Height 162.6 cm (5' 4 ) 03/29/2024 11:24 AM CREEL HAND Body Mass Index 27.98 03/29/2024 11:24 AM CREEL HAND Plan of Treatment Health Maintenance Due Date Last Done Comments Pneumococcal vaccine <65 (1 of 1 - PPSV23) 09/20/2009 05/14/2008, 12/03/2006, 08/17/2006, Additional history exists Meningococcal B Vaccine (1 of 2 - Standard) 2019 Regular Well Visit/Exam 18-64 09/20/2021 Chlamydia and Gonorrhea (GC/CT) Screening 07/30/2024 07/31/2023, 04/19/2023, 09/03/2022, Additional history exists Depression Screening 08/26/2024 08/27/2023, 09/26/2022, 09/26/2022 Influenza Vaccine (Season Ended) 2024 11/30/2018, 11/26/2014, 12/13/2013, Additional history exists DTaP/Tdap/Td Vaccine (10 - Td or Tdap) 09/23/2033 09/24/2023, 07/24/2022, 06/16/2021, Additional history exists Hepatitis B Screening Completed 11/16/2007 , 11/16/2007, 08/17/2006, Additional history exists Meningococcal Vaccine Aged Out 11/26/2014 No rober mansoor eligible based on patient's age to complete this topic HPV Vaccines Completed 10/17/2015, 04/2 09/2015, 11/26/2014 Hepatitis C Screening Completed 04/19/2023 , 03/09/2022, 01/08/2021 Varicella Vaccines Completed 12/16/2023, 0 10/12/2022, 08/07/2021, Additional history exists Procedures Procedure Name Priority Date/Time Associated Diagnosis Comments N. GONORRHOEAE/C. TRACHOMATIS AMPLIFICATION Routine 07/31/2023 10:58 AM CDT HEPATITIS C ANTIBODY Routine 04/19/2023 11:59 AM CREEL HAND Encounter for supervision of other normal in first trimester from Last 3 Months or Most Recently Relevant to Health Maintenance Results * N. gonorrhoeae/C. trachomatis Amplification Urine (07/31/2023 10:58 AM CDT) C. trachomatis Not Detected Not Detected [facility] N. gonorrhoeae Not Detected Not Detected [facility] Comment: Interpretive Data This assay detects Chlamydia trachomatis and Neisseria gonorrhoeae by nucleic acid amplification testing (NAAT). This assay has been cleared by the [place] Food and Drug administration. The performance characteristics of this test have been verified by the [facility] Molecular Infectious Disease laboratory. The performance characteristics of this test have not been evaluated in individuals less than 14 years of age. Current Interpretive Data last revised 2022. Urine (None) 07/31/2023 10:5 8 AM CDT 07/31/2023 11:18 AM CDT us Yolanda Mims MD LAB MICROBIOLOGY - G ENERAL ORDERABLES Final Result [facility] Department [place] [address] [facility] * Hepatitis C antibody Blood (04/19/2023 11:59 AM CREEL HAND) Hep C Ab Nonreactive Nonreactive [facility] Comment:Antibodies to HCV no t detected. Does NOT exclude the possibility of recent exposure to HCV. Current interpretive data was last revised on 21 Blood 04/19/2023 11:5 9 AM CREEL HAND 04/19/2023 12:31 PM CREEL HAND Niko John MD LAB MICROBIOLOGY - GENERAL ORDERABLES Final Result REG [facility] Department [place] [address] from Last 3 Months or Most Recently Relevant to Health Maintenance Insurance [facility] OTHER Address: [address] [address] IDPA [facility] PPO [facility] PLAN [facility] ACCESS Advance Directives For more information, please contact: [phone] * Full Code (Latest Code Status on [...] 3:12 PM 08/07/2021 6:55 PM Care Teams Pony Roll Finisher Relationship Specialty Start Date End Date Tin Rodriguez NP [address] [place] [address] PCP - General Family Medicine 03/29/24
--- NOTE | 2024-07-15 19:47 | ED.BACK ---
HPI - Back Pain/Injury General Chief Complaint: Back Pain/Injury Stated Complaint: back pain Time Seen by Provider: 07/15/24 19:47 Source: patient Mode of arrival: ambulatory Limitations: no limitations History of Present Illness HPI Narrative: Patient presents with right-sided back pain after accidentally tripping and falling backwards 2 days ago and landing on her kids toys. She has been using Tylenol 500 mg 2 tablets every fiber 6 hours which seems to help a bit but wears off. She denies any hematuria. 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 She lists an allergy to codeine but states that she has previously received other opiate therapy. No history of malignancy, abdominal pain, IV drug use, chronic steroid use, syncope, fevers, chills, HIV, or immunosuppression. She has noted some dysuria but denies any urinary urgency or frequency. She denies any acute incontinence of bowel or bladder though she does state that she occasionally urinates a little bit when she coughs and this is chronic ever since having her children. When she 1st fell she had some paresthesias at her back but then this resolved. Denies any saddle anesthesia. She is on control. Related Data Allergies Allergy/AdvReac Type Severity Reaction Status Date / Time codeine Allergy Swelling Verified 07/15/24 20:28 of Lip/Tongue/Throat PMFSH Past Medical History Medical History Uses control Social History Social History (Updated 07/15/24 @ 20:03 by Blanca Rand MD) Social History: Denies alcohol or tobacco. Occasional marijuana Smoking status: Never smoker Living arrangements: with family Additional living arrangements comments: children Occupation/Education: occupation Additional occupation/education comments: works drive up for [employer] Exam Narrative: GENERAL: Well-appearing, well-nourished, and in no acute distress. HEAD: Normocephalic, atraumatic. EYES: Non injected, non icteric ENT: Nares clear, no rhinorrhea or epistaxis. Gross auditory acuity intact. NECK: Supple. No meningismus. CHEST: Speaking in full sentences. No respiratory distress. HEART: Regular rate and rhythm. . ABDOMEN: Soft, nondistended. No rigidity or guarding. Not peritoneal EXTREMITIES: Normal range of motion. No lower extremity edema. SKIN: Warm, dry, no rash. Old injury/lesion/scar at midline back, well healing. BACK: No midline tenderness to palpation of lumbar spine. Patient has some tenderness to palpation focally at right flank but without open skin/ecchymosis. R CVA tenderness. No L CVA tenderness. NEURO: No focal deficits. Alert and oriented. Answering questions. Following commands. Normal speech without aphasia or dysarthria. 5/5 strength with bilateral ankle dorsiflexion, plantar flexion, bilateral knee flexion extension, bilateral hip flexion, abduction, adduction. Patient able to stand and bear weight and ambulate. Normal sensation in bilateral lower extremities , symmetric. PSYCH: Normal mood and affect. Course Vital Signs Vital signs: Vital Signs Temperature 97.7 F 07/15/24 17:33 Pulse Rate 80 07/15/24 17:33 Respiratory Rate 14 07/15/24 17:33 Blood Pressure 114/63 07/15/24 17:33 Pulse Oximetry 98 07/15/24 17:33 Temperature 97.7 F 07/15/24 17:33 Pulse Rate 75 07/15/24 21:05 Respiratory Rate 16 07/15/24 21:05 Blood Pressure 121/79 07/15/24 21:05 Pulse Oximetry 100 07/15/24 21:05 MDM - Back Pain/Injury MDM Narrative Medical decision making narrative: Patient presents with back after accidentally falling backwards and landing on her children's toys 2 days ago In the emergency department they are afebrile with vital signs within normal limits. Back has no deformities, external skin changes or signs of trauma where the injury was. Curvature is within normal limits. No tenderness is noted on palpation of the spinous processes which are midline. Sensation to the lower extremities is normal bilaterally. Dorsi/plantar flexion is normal bilaterally. They do not have any other red flags for fracture, malignancy, infection (e.g. spinal epidural abscess), or aortic/vascular: Age, not on chronic steroids, no cancer, no fever, IV drug use, HIV, immunosuppression, abdominal pain, tearing pain, syncope. She did have urinary symptoms so will obtain UA but pain is not midline. Given this, will defer further imaging at this time. Urinalysis unremarkable. test negative. No hematuria to suggest renal trauma and no signs of infection to suggest UTI/pyelonephritis. Pyridium for dysuria but without need for antibiotics as lower suspicion for infection. I am informed as patient is about to be discharged that she told the nurse that she is currently breast-feeding her 7-month-old. Advised be given this information that she avoid taking the ibuprofen and pyridium in the setting of breast feeding and would recommend against breast-feeding while taking the methocarbamol. For this reason, she would be limited to acetaminophen and the lidocaine patch if she is continuing to breast feed. However, also advise that the nurse could tell patient that she could consider treating her pain with the regimen as prescribed and pump and dump in the interim if she feels comfortable doing that and has a supply of breast milk she has that she can use in the interim (fresh/frozen). Lab Data Attestation: I reviewed the patient's lab results. Labs: Lab Results 07/15/24 07/15/24 Range/Units 20:19 20:21 Urine Color Yellow (Yellow) Urine Appearance Clear (Clear) Urine pH 6.0 (5.0-9.0) Ur Specific [place] 1.030 (1.001-1.035) Urine Protein Negative (Negative) mg/dL Urine Glucose (UA) Negative (Negative) mg/dL Urine Ketones Negative (Negative) mg/dL Ur Blood (Man) Negative (Negative) Urine Nitrate Negative (Negative) Urine Bilirubin Negative (Negative) Urine Urobilinogen 1.0 (<2.0) mg/dL Leukocyte Esterase Rfl Negative (Negative) KEL/UL POC Urine HCG, Qual Negative (Negative) Discharge Plan Discharge Clinical Impression: Acute right-sided low back pain without sciatica, Blunt trauma, Fall, Dysuria Patient Disposition: Home Condition: Stable Instructions: Antibiotic Form, Acute Low Back Pain (ED), Fall Prevention (ED), Lower Back Exercises (ED) Additional Instructions: The goal is multimodal pain medication management to help you reduce your pain to a degree to balance some rest but with maintaining staying active/moving to reduce the chance of you getting more sore/achy. Acetaminophen/Tylenol (maximum 4000 mg per day) is safe to take with NSAIDs (ibuprofen/Motrin) for pain relief. A muscle relaxer and topical approaches been prescribed as well. Follow-up with primary care physician. If you do not have 1 the name of the doctors listed below. Your urine did not show any bladder signs of infection. Pyridium/phenazopyridine can help with the mild burning pain you are experiencing nevertheless. It can discolor your urine and tears (turn them orange). Do not wear contact lenses while taking this medication. Return to the ER if you have increased pain in your back, you develop lower extremity weakness/numbness/paralysis, you have numbness or tingling in your private parts, or you are unable to control your ability to urinate/stool. Patient Language: Haitian Prescriptions: New acetaminophen 500 mg capsule 1,000 mg PO Q6H PRN (Reason: pain) Qty: 30 0RF lidocaine 4 % adhesive patch,medicated 1 patch topical DAILY PRN (Reason: pain) Qty: 5 0RF methocarbamol 750 mg tablet 750 mg PO HS Qty: 7 0RF ibuprofen 600 mg tablet 600 mg PO TID PRN (Reason: pain) Qty: 30 0RF phenazopyridine [Pyridium] 100 mg tablet 100 mg PO TID PRN (Reason: pain) Qty: 5 0RF Rx Instructions: received dose #1 in ED 07/15 PM (total 6 doses) No Action vit,nisha 50-ileh-klhqj 28 mg iron- 1 mg tablet 1 tablet PO DAILY Qty: 30 0RF acetaminophen 500 mg tablet 1,000 mg PO TID PRN (Reason: carmen) 7 Days Qty: 42 0RF ibuprofen 800 mg tablet 800 mg PO TID PRN (Reason: pain) 7 Days Qty: 21 0RF ondansetron 4 mg tablet,disintegrating 4 mg PO Q8H PRN (Reason: nausea and vomiting) Qty: 10 0RF Follow-up/Referrals: Carlos Alberto Vazquez MD [Physician] - UNKNOWN,DOCTOR [Primary Care Provider] - Stand Alone Forms: Work/School Release IP Time of Disposition: 20:43
--- OUTSIDE RECORDS SUMMARY | 2024-07-15 20:00 | XMS_ITS | Referral Summary ---
Author Organization [address] Address [facility] [place] [address] Care Team Providers Care Tools Administrator Name Role Phone Tin Rodriguez NP Primary Care Provider Allergies Active Allergy Reactions Criticality Noted Date Comments Codeine Swelling,Stomach upset Medium 03/18/2016 Stomach/GI Upset Medications vit 33-xxuf-wklsx-dha 27mg iron- 800 mcg-250 mg capsule Take [...] Route Frequency Start Date End Date Status [facility] ferrous sulfate/placebo (/IVAD2 TRIAL) [...] # Disposition: Follow up task sent to [facility] scheduling pool. Continue routine care. Moderate persistent asthma 08/12/2023 Overview (11/23/2023): - Age at Diagnosis: Never had diagnosis until this , feels SOB frequently - History of hospitalizations/intubations?: No - Classifications: mild intermittent, mild persistent, moderate persistent, severe persistent - Pre- classification: None - Current classification: moderate persistent - Pre- regimen: None - Baseline peak flow: 180/270/230 (08/12/23) - Plastics And Composites Inspector/PCP: Pt has PCP from years ago, will [...] If patient does not have PCP or coper hand to manage outside of consider referral: pulmonology [...] associated with increased obstetric risks. These include dxjnz-wyn-xyfmgymlmuy-age (SGA) , and infant mortality. Plan: [] [...] education: completed in all 3 trimesters [] Track Repair Person: discussed 11/22 [] Car seat discussed [] [...] # Disposition: Follow up task sent to [facility] scheduling pool. Desires discharge home today. Encounter [...] education: completed in all 3 trimesters [x] Track Repair Person: remains undecided, going to look today before [...] drink = 0.6 oz pur e alcohol) [facility] Utilities Answer Date Recorded In the [...] often do you attend chur ch or evangelical services? More than 4 times per year 12/16/2023 Do you belong to any clubs o r organizations such as religion groups, unions, fraternal or athletic groups, or [...] staff should administer the PHQ-9) 0 10/09/2022 [facility] - Occupational Stress Questionnaire Answer Date Recorded [...] in a fci (including now)? No 04/19/2023 [place] Depression Scale Answer Date Recorded [place] Depression Scale Total 6 08/27/2023 The thought [...] any time in the past 12 m [facility], were you homeless or living [...] Sex Assigned at Female 03/29/2024 11:30 AM OPERATION MANAGER Legal Sex Female 6:07 AM OPERATION MANAGER Gender Identity Female 03/29/2024 11:30 AM OPERATION MANAGER Sexual Orientation Straight 03/29/2024 11 :30 AM OPERATION MANAGER Last Filed Vital Signs Vital Sign Reading Time Taken Comments Blood Pressure 112/71 03/29/2024 11:24 AM OPERATION MANAGER Pulse 84 03/28/2024 6:20 AM OPERATION MANAGER Temperature 37 C (98.6 F) 03/28/2024 1:43 AM OPERATION MANAGER Respiratory Rate 16 03/28/2024 6:20 AM OPERATION MANAGER Oxygen Saturation 100% 03/28/2024 6:20 AM OPERATION MANAGER Inhaled Oxygen Concentration - - Weight 73.9 kg (163 lb) 03/29/2024 11:24 AM OPERATION MANAGER Height 162.6 cm (5' 4 ) 03/29/2024 11:24 AM OPERATION MANAGER Body Mass Index 27.98 03/29/2024 11:24 AM OPERATION MANAGER Plan of Treatment Not on file Procedures Procedure Name Priority Date/Time Associated Diagnosis Comments N. GONORRHOEAE/C. TRACHOMATIS AMPLIFICATION Routine 07/31/2023 10:58 AM CDT HEPATITIS C ANTIBODY Routine 04/19/2023 11:59 AM OPERATION MANAGER Encounter for supervision of other normal in first trimester from Last 3 Months or Most Recently Relevant to Health Maintenance Results * N. gonorrhoeae/C. trachomatis Amplification Urine (07/31/2023 10:58 AM CDT) C. trachomatis Not Detected Not Detected [facility] N. gonorrhoeae Not Detected Not Detected [facility] Comment: Interpretive Data This assay detects Chlamydia trachomatis and Neisseria gonorrhoeae by nucleic acid amplification testing (NAAT). This assay has been cleared by the [place] Food and Drug administration. The performance characteristics of this test have been verified by the [facility] Molecular Infectious Disease laboratory. The performance characteristics of this test have not been evaluated in individuals less than 14 years of age. Current Interpretive Data last revised 2022. Urine (None) 07/31/2023 10:5 8 AM CDT 07/31/2023 11:18 AM CDT Yolanda Mims MD LAB MICROBIOLOGY - G ENERAL ORDERABLES Final Result Performing Organization Address City/[facility] Co de Phone Number [facility] Department [place] [employer] [address] [facility] * Hepatitis C antibody Blood (04/19/2023 11:59 AM OPERATION MANAGER) Pathologist [facility] Hep C Ab Nonreactive Nonreactive [facility] Comment:Antibodies to HCV no t detected. Does NOT exclude the possibility of recent exposure to HCV. Current interpretive data was last revised on 21 Blood 04/19/2023 11:5 9 AM OPERATION MANAGER 04/19/2023 12:31 PM OPERATION MANAGER Niko John MD LAB MICROBIOLOGY - GENERAL ORDERABLES Final Result [facility] [place] [address] from Last 3 Months or Most Recently Relevant to Health Maintenance Insurance [place] [address] IDPA [facility] PPO [facility] PLAN [facility] ACCESS Advance Directives For more information, please contact: [phone] * Full Code (Latest Code Status on [...] 3:12 PM 08/07/2021 6:55 PM Care Teams Tools Administrator Relationship Specialty Start Date End Date Tin Rodriguez NP [address] [place] [address] PCP - General Family Medicine 03/29/24
--- OUTSIDE RECORDS SUMMARY | 2024-07-15 20:00 | XMS_ITS | Encounter Summary ---
Author Organization [facility] Healthcare Address [address] [place] [address] Care Team Providers Care Sew On Operator Name Role Phone Tin Rodriguez NP Primary Care Provider [phone] Encounter Details Date Type Department Care Team (Late st Contact Info) Description 10/07/2023 Social Work [facility]s [facility]ne[facility] Clinic [address] [facility] 3rd Floor [address] [place] [address] Senthil Lomas LCSW Social History Tobacco Use Types Packs/Day Years Used Date Smoking Tobacco: Never Smokeless Tobacco: Never Alcohol Use Standard Drinks/Week Comments Never 0 (1 standard drink = 0.6 oz pur e alcohol) [facility] Utilities Answer Date Recorded In the past 12 months has e [employer], gas, oil, or water [employer] threatened to shut off services in your [...] than three times a week 04/19/2023 Attends Nondenominational Services Not on file 04/19 Active Member [...] staff should administer the PHQ-9) 0 10/09/2022 [facility] - Occupational Stress Questionnaire Answer Date [...] place to sleep or slept in a intermediate (including now)? No 04/19/2023 [place] Depression Scale Answer Date Recorded [place] Depression Scale Total 6 08/27/2023 The thought [...] Sex Assigned at Female 03/29/2024 11:30 AM SPONGE PRESS OPERATOR Legal Sex Female 6:07 AM SPONGE PRESS OPERATOR Gender Identity Female 03/29/2024 11:30 AM SPONGE PRESS OPERATOR Sexual Orientation Straight 03/29/2024 11 :30 AM SPONGE PRESS OPERATOR documented as of this encounter Plan of Treatment Not on file documented as of this encounter Visit Diagnoses Not on filedocumented in this encounter Additional Health Concerns Infection Onset Date Last Indicated Resolved Time COVID: Suspected 11/20/2023 11/20/2023 11/20/2023 3:42 PM CDT Rhino/Enterovirus 11/20/2023 11/20/2023 11/27/2023 3:05 AM CDT documented as of this encounter Care Teams Sew On Operator Relationship Specialty Start Date End Date Tin Rodriguez NP [address] [place] [address] PCP - General Family Medicine 03/29/24 documented as of this encounter
--- OUTSIDE RECORDS SUMMARY | 2024-07-15 20:00 | XMS_ITS | Clinical Summary ---
Author Organization [address] Address [facility] [place] [address] Care Team Providers Care Media Planner / Buyer Name Role Phone Tin Rodriguez NP Primary Care Provider [phone] Allergies Active Allergy Reactions Criticality Noted Date Comments Codeine Swelling,Stomach upset Medium 03/18/2016 Stomach/GI Upset Medications vit 33-[id number]-[id number] 27mg iron- 800 mcg-250 mg capsule Take [...] Frequency Start Date End Date Status [facility] ferrous sulfate/placebo (/IVAD2 TRIAL) tablet 1 [...] # Disposition: Follow up task sent to [facility] scheduling pool. Continue routine care. Moderate persistent asthma 08/12/2023 Overview (11/23/2023): - Age at Diagnosis: Never had diagnosis until this , feels SOB frequently - History of hospitalizations/intubations?: No - Classifications: mild intermittent, mild persistent, moderate persistent, severe persistent - Pre- classification: None - Current classification: moderate persistent - Pre- regimen: None - Baseline peak flow: 180/270/230 (08/12/23) - Personal Health Coach/PCP: Pt has PCP from years ago, will [...] If patient does not have PCP or education general manager to manage outside of consider referral: pulmonology [...] daily nausea. Has not been able to pickle sorter meds due to insurance issues. Able to [...] associated with increased obstetric risks. These include wrgng-ilx-mytwmymuhip-age (SGA) , and infant mortality. Plan: [] [...] education: completed in all 3 trimesters [] Curriculum Specialist: discussed 11/22 [] Car seat discussed [...] # Disposition: Follow up task sent to [facility] scheduling pool. Desires discharge home today. [...] education: completed in all 3 trimesters [x] Curriculum Specialist: remains undecided, going to look today [...] drink = 0.6 oz pur e alcohol) [facility] Utilities Answer Date Recorded In the past 12 months has e [employer], oil, or water [employer] threatened to shut off services in your [...] often do you attend chur ch or mormonism services? More than 4 times per year 12/16/2023 Do you belong to any clubs o r organizations such as amish groups, unions, fraternal or athletic groups, or [...] staff should administer the PHQ-9) 0 10/09/2022 [facility] - Occupational Stress [...] place to sleep or slept in a detention (including now)? No 04/19/2023 [place] Depression Scale Answer Date Recorded [place] Depression Scale Total 6 08/27/2023 The thought [...] were you homeless or living in a detention (including now)? No 12/16/2023 Personal Safety Answer [...] Sex Assigned at Female 03/29/2024 11:30 AM BRIQUETTE MOLDER Legal Sex Female 6:07 AM BRIQUETTE MOLDER Gender Identity Female 03/29/2024 11:30 AM BRIQUETTE MOLDER Sexual Orientation Straight 03/29/2024 11 :30 AM BRIQUETTE MOLDER Obstetrics History Para Term AB IAB SAB [...] Comments Blood Pressure 112/71 03/29/2024 11:24 AM BRIQUETTE MOLDER Pulse 84 03/28/2024 6:20 AM BRIQUETTE MOLDER Temperature 37 C (98.6 F) 03/28/2024 1:43 AM BRIQUETTE MOLDER Respiratory Rate 16 03/28/2024 6:20 AM BRIQUETTE MOLDER Oxygen Saturation 100% 03/28/2024 6:20 AM BRIQUETTE MOLDER Inhaled Oxygen Concentration - - Weight 73.9 kg (163 lb) 03/29/2024 11:24 AM BRIQUETTE MOLDER Height 162.6 cm (5' 4 ) 03/29/2024 11:24 AM BRIQUETTE MOLDER Body Mass Index 27.98 03/29/2024 11:24 AM BRIQUETTE MOLDER Plan of Treatment Health Maintenance Due Date [...] HEPATITIS C ANTIBODY Routine 04/19/2023 11:59 AM BRIQUETTE MOLDER Encounter for supervision of other normal in [...] this test have been verified by the [facility] Molecular Infectious Disease laboratory. The performance characteristics of this test have not been evaluated in individuals less than 14 years of age. Current Interpretive Data last revised 2022. Urine (None) 07/31/2023 10:5 8 AM CDT 07/31/2023 11:18 AM CDT us Yolanda Mims MD LAB MICROBIOLOGY - G ENERAL ORDERABLES Final Result [facility] Department [place] [address] [facility] * Hepatitis C antibody Blood (04/19/2023 11:59 AM BRIQUETTE MOLDER) Hep C Ab Nonreactive Nonreactive [facility] Comment:Antibodies to HCV no t detected. Does NOT exclude the possibility of recent exposure to HCV. Current interpretive data was last revised on 21 Blood 04/19/2023 11:5 9 AM BRIQUETTE MOLDER 04/19/2023 12:31 PM BRIQUETTE MOLDER Niko John MD LAB MICROBIOLOGY - GENERAL ORDERABLES Final Result REG [facility] Department [place] [address] from Last 3 Months or Most Recently Relevant to Health Maintenance Insurance [facility] PPO [facility] PLAN [facility] ACCESS Advance Directives For more information, please contact: [phone] * Full Code (Latest Code Status on [...] 3:12 PM 08/07/2021 6:55 PM Care Teams Media Planner / Buyer Relationship Specialty Start Date End Date Tin Rodriguez NP [address] [place] [address] PCP - General Family Medicine 03/29/24
--- OUTSIDE RECORDS SUMMARY | 2024-07-15 20:00 | XMS_ITS | Encounter Summary ---
Author Organization [facility] Healthcare Address [address] [place] [address] Care Team Providers Care Audiometrist Name Role Phone Tin Rodriguez NP Primary Care Provider [phone] Encounter Details Date Type Department Care Team (Late st Contact Info) Description 09/04/2022 Treatment [facility] [address] [address] Armando Cunningham MD Social History Tobacco Use [...] often do you attend chur ch or protestant services? More than 4 times per year 02/24/2022 Do you belong to any clubs o r organizations such as sabianist groups, unions, fraternal or athletic groups, or [...] and heating? Not hard at all 02/24/2022 [facility] of Occupat ional Health - Occupational Stress [...] place to sleep or slept in a care home (including now)? No 02/24/2022 Telephone Depression Scale Answer Date Recorded Telephone Depression Scale Total 6 07/07/2022 The thought of harming myself has occurred to me . Never 07/07/2022 Education Answer Date Recorded What is the highest level of school you have completed or the highest degree you have received? 11th grade 02/24/2022 Comments Yes Sex and Gender Information Value Date Recorded Sex Assigned at Female 03/29/2024 11:30 AM [employer]OVE B[employer] WORKER Legal Sex Female 6:07 AM [employer] BOTTOM WORKER Gender Identity Female 03/29/2024 11:30 AM STOVE BOTTOM WORKER Sexual Orientation Straight 03/29/2024 11 :30 AM STOVE BOTTOM WORKER documented as of this encounter Progress Notes [...] future transfusions. Contact Information: Please contact the [facility] with any questions. This report [...] documented as of this encounter Care Teams Audiometrist Relationship Specialty Start Date End Date Tin Rodriguez NP [address] [place] [address] PCP - General Family Medicine 03/29/24 documented as of this encounter
[2024-07-15] MEDS: HYDROcodone/acetaminophen (*CRX) 5-325 MG TABLET 1 TAB PO (20:16)
[2024-07-15 20:23] LABS: BEDSIDEPREGUCG Negative (Negative)
[2024-07-15 20:26] LABS: Add Urine Microscopic? NO; Appearance Urine Clear (Clear); Bilirubin Urine Negative (Negative); Blood Urine Negative (Negative); Color Urine Yellow (Yellow); Glucose Urine UA Negative (Negative); Ketones Urine Negative (Negative); Leukocyte Esterase Ur Negative LEU/UL (Negative); Nitrate Urine Negative (Negative); Protein Urine Negative (Negative)
[2024-07-15] MEDS: LIDOCAINE 5% PATCH 1 PATCH TRANSDERM (20:57)
[2024-07-15 21:03] VITALS: BP 121/79; PULSE 75; RESP 16; O2SAT 100
[2024-07-15 21:05] VITALS: BP 121/79; PULSE 75; RESP 16; O2SAT 100
== END 2024-07-15 21:14 | disposition home or self-care (01) ==
PROVIDERS: Emergency Provider Student in an Organized Health Care Education/Training Program
DX: M54.50 Low back pain, unspecified (principal); S39.92XA Unspecified injury of lower back, initial encounter; W18.30XA Fall on same level, unspecified, initial encounter; R30.0 Dysuria
CPT/HCPCS: 81003; 81025; 99283; A9270